=== PATIENT | male | born 1955 | race African-American/Black ===

== ENCOUNTER 2019-03-19 11:55 | Inpatient (IN) | payer OTHER ==
[~2019-03-19] VITALS: Ht 185.4 cm; Wt 106.8 kg
[2019-03-19] VITALS (21 sets, daily range): BP systolic 55–178; BP diastolic 30–135
[2019-03-19] MEDS ORDERED: diphenhdrAMINE HCL 50 MG/1 ML VL ONE (12:20)
[2019-03-19] MEDS ORDERED: HALOPERIDOL LACTATE 5 MG/ML INJ VIAL ONE (12:22)
[2019-03-19] MEDS ORDERED: MIDAZOLAM HCL 1MG/1ML-2 ML VIAL ONE (12:26)
[2019-03-19] MEDS ORDERED: MIDAZOLAM HCL 5 MG/ML-1ML VIAL ONE (12:27)
[2019-03-19] MEDS ORDERED: HALOPERIDOL LACTATE 5 MG/ML INJ VIAL IV PRN (12:30)
[2019-03-19] MEDS ORDERED: diphenhdrAMINE HCL 50 MG/1 ML VL IV ONE (12:30)
[2019-03-19] MEDS ORDERED: LORazepam 2MG/ML-1ML VIAL IV ONE ×2 (12:30)
[2019-03-19] MEDS ORDERED: ETOMIDATE (2MG/ML) 20ML VIAL IV ONE ×2 (12:30→12:45)
[2019-03-19] MEDS ORDERED: SUCCINYLCHOLINE CHLORIDE 20 MG/ML 10ML VIAL IV ONE ×3 (12:31→12:45)
[2019-03-19] MEDS ORDERED: MIDAZOLAM DRIP 50 mg/50mL 50 ML IV ONE (12:31)
[2019-03-19] MEDS: MIDAZOLAM DRIP 50 mg/50mL 50 ML IV SCH ×2 (12:39→23:12)
[2019-03-19 13:13] LABS: Eosinophils # (auto) 0.1 uL; Eosinophils % (auto) 0.7 % (0.0-7.0); Hemoglobin 12.4 g/dL (13.5-17.5)
[2019-03-19 13:14] LABS: Basophils # (auto) 0 uL; Basophils % (auto) 0.2 % (0.0-2.0); Hematocrit 41.8 % (41.0-53.0); Lymphocytes # (auto) 8.4 uL; Lymphocytes % (auto) 45.2 % (10.0-50.0); Mean Corpuscular Hemoglobin 27.8 pg (28.0-32.0); Mean Corpuscular Hgb Conc. 29.7 g/dL (32.0-36.0); Mean Corpuscular Volume 93.6 fL (80.0-100.0); Monocytes # (auto) 2.3 uL; Monocytes % (auto) 12.6 % (0.0-12.0); Neutrophils # (auto) 7.7 uL; Neutrophils % (auto) 41.3 % (37.0-80.0); Nucleated Red Blood Cells % 0.2 %; Platelet Count (auto) 270 10^3/uL (140-450); Red Blood Cells 4.46 10^6/uL (4.5-5.90); Red Cell Distribution Width 12.4 % (11.8-14.3); White Blood Cell 18.7 10^3/uL (4.4-10.8)
[2019-03-19 13:20] LABS: Urine Bacteria FEW /hpf (None Seen); Urine Blood Negative /uL (Negative); Urine Specific Gravity 1.025 (1.001-1.035); Urine WBC 1 /hpf (0 - 3)
[2019-03-19] MEDS ORDERED: MIDAZOLAM HCL 5 MG/ML-1ML VIAL IV ONE (13:30)
[2019-03-19 13:33] LABS: Alanine Aminotransferase 42 U/L (16-61); Albumin 3.9 g/dL (3.4-5.0); Alcohol, Urine < 3.0 mg/dL (0-5); Amphetamine Screen, Urine NEGATIVE (NEGATIVE); Anion Gap 26 (5-15); Aspartate Aminotransferase 31 U/L (15-37); BUN/Creatinine Ratio 8.8; Barbiturate Scree,Urine NEGATIVE (NEGATIVE); Benzodiazephine Screen, Urine NEGATIVE (NEGATIVE); Blood Urea Nitrogen 23 mg/dL (7-18); Calcium 9.2 mg/dL (8.5-10.1); Cannabinoid Screen, Urine NEGATIVE (NEGATIVE); Carbon Dioxide 16 mmol/L (21-32); Chloride 94 mmol/L (98-107); Cocaine Screen, Urine NEGATIVE (NEGATIVE); GFR African American 32 mL/min; GFR Non-African American 27 mL/min; Opiate Scree,Urine NEGATIVE (NEGATIVE); Phencyclidine Screen, Urine NEGATIVE (NEGATIVE); Potassium 3.9 mmol/L (3.5-5.1); Sodium 136 mmol/L (136-145)
[2019-03-19] MEDS ORDERED: NOREPINEPHRINE 8 MG/250ML KIT 250 ML IV ONE (13:35)
[2019-03-19 13:42] LABS: Alkaline Phosphatase 140 U/L (45-117); Bilirubin, Total 0.5 mg/dL (0.2-1.0); Total Protein 8.3 g/dL (6.4-8.2)
[2019-03-19] MEDS: NOREPINEPHRINE 8 MG/250ML KIT 250 ML IV SCH ×2 (13:45→23:51)
[2019-03-19 13:49] LABS: Glucose 882 mg/dL (74-106)
[2019-03-19] MEDS ORDERED: InsuLIN REG 1unit/0.01ml Soln (100units/ml) IV ONE ×2 (14:00→17:45)
[2019-03-19] MEDS ORDERED: SODIUM BICARBONATE 8.4 % INJ 50ML VIAL IV ONE (14:00)
[2019-03-19] MEDS ORDERED: InsuLIN R (HUMAN) 100 UNITS in SODIUM CHL 0.9% 99 ML IV SCH ×4 (15:16→21:59)
[2019-03-19] MEDS ORDERED: DEXTROSE (50%) 50ML SYRG IV PRN ×2 (15:30→16:00)
[2019-03-19] MEDS ORDERED: PROPOFOL 100 ML IV SCH (15:47)
[2019-03-19] MEDS ORDERED: NITROGLYCERIN 0.4 MG SL TAB SL PRN (16:00)
[2019-03-19] MEDS ORDERED: MORPHINE SULF INJ 2 MG/ML SYRINGE 1ML IV PRN (16:00)
[2019-03-19] MEDS ORDERED: ACCU-CHEK COMFORT CURVE STRIP VI SCH (16:30)
[2019-03-19 16:51] LABS: Basophils # (auto) 0 uL; Basophils % (auto) 0.2 % (0.0-2.0); Eosinophils # (auto) 0 uL; Hematocrit 42.5 % (41.0-53.0); Hemoglobin 13.6 g/dL (13.5-17.5); Lymphocytes # (auto) 1.1 uL; Lymphocytes % (auto) 12.5 % (10.0-50.0); Mean Corpuscular Hemoglobin 27.9 pg (28.0-32.0); Mean Corpuscular Volume 87.2 fL (80.0-100.0); Monocytes # (auto) 0.4 uL; Monocytes % (auto) 4.4 % (0.0-12.0); Neutrophils # (auto) 7.5 uL; Neutrophils % (auto) 82.9 % (37.0-80.0); Nucleated Red Blood Cells % 0.1 %; Platelet Count (auto) 267 10^3/uL (140-450); Red Blood Cells 4.88 10^6/uL (4.5-5.90); Red Cell Distribution Width 12.1 % (11.8-14.3)
[2019-03-19 17:13] LABS: Calcium 8.5 mg/dL (8.5-10.1)
[2019-03-19 17:18] LABS: Cholesterol 90 mg/dL (< 200); HDL Cholesterol 26 mg/dL (40-59); LDL Cholesterol 46 mg/dL (< 100); Triglycerides 197 mg/dL (< 150)
[2019-03-19 17:22] LABS: BUN/Creatinine Ratio 10.1; Phosphorus 2.9 mg/dL (2.5-4.90)
[2019-03-19] MEDS: ACCU-CHEK COMFORT CURVE STRIP VI SCH ×5 (17:24→22:22)
[2019-03-19] MEDS: SODIUM CHLORIDE 0.9% 1,000 ML IV SCH ×2 (17:24→17:56)
[2019-03-19] MEDS: ALBUTEROL SULF 2.5 MG/0.5ML(0.5%) NEB SOLN NEB SCH ×2 (18:14→22:08)
[2019-03-19] MEDS: IPRATROPIUM BROM 0.5 MG/2.5ML INH SOL NEB SCH ×2 (18:14→22:08)
[2019-03-19] MEDS: ATRACURIUM BESYLATE 1,000 MG in D5W 5% 150 ML IV SCH (18:35)
[2019-03-19] MEDS ORDERED: SODIUM CHLORIDE 0.9% 1,000 ML IV SCH (19:47)
--- NOTE | 2019-03-19 19:52 | NUR ---
ARRIVED TO UNIT FROM ER
--- NOTE | 2019-03-19 19:52 | NUR ---
ATRACURIUM TURNED OFF - PATIENT STILL AT NORMAL BODY TEMPERATURE
--- NOTE | 2019-03-19 20:00 | NUR ---
ADMISSION NOTE: INTUBATED, SEDATED, AND PARALYZED. UNRESPONSIVE. UNKNOWN BASELINE TRAIN OF FOUR. PUPILS 2 AND SLUGGISH. SINUS TACH, HR 130s. SBP 80-90s ON A LEVOPHED GTT. 8.0 ETT, 24 AT THE LIP. LS CLEAR AND DIMINISHED THROUGHOUT. EVEN AND UNLABORED BREATHING SpO2 INITIALLY IN THE HIGH 80s, BUT > 92% AFTER INCREASING FiO2. MINIMAL ETT AND ORAL SECRETION. ABD ROUND BUT SOFT. HYPOACTIVE BS. UNKNOWN LBM. OGT + AIR BOLUS, LIS, BROWN-SOMMERS OUTPUT. LOCKETT PATENT AND INTACT, DRAINING PALE YELLOW URINE. SKIN GROSSLY INTACT. RIGHT FOREARM 18 G PIV, CDI, PATENT WITH BLOOD RETURN. LEFT WRIST 18 G PIV, CDI, PATENT WITH BLOOD RETURN. LEFT FEMORAL THERAPEUTIC HYPOTHERMIA CVC, INTACT, BUT BLOODY, PATENT WITH BLOOD RETURN. LEFT HAND 20 G PIV, OCCLUDED. DRIPS: ATRACURIUM VERSED PROPOFOL INSULIN LEVOPHED REINFORCED POC. MAINTAINED PATIENT SAFETY: BED LOCKED AND IN THE LOWEST POSITION, FREQUENT VISUAL CHECKS. WILL CONT CARE. FUMI, , UPDATED ON PATIENT'S STATUS AND POC. VERBALIZED UNDERSTANDING WILL CONT CARE
--- NOTE | 2019-03-19 20:00 | NUR ---
BG READING "HIGH" - WILL SEND FOR SERUM GLUCOSE
--- NOTE | 2019-03-19 20:00 | NUR ---
TEMP 99.0F RECTALLY -PLACED ICE PACKS IN BILATERAL AXILLA, LEFT GROIN AND BEHIND NECK: REPROGRAMMED ZOLL THERAPEUTIC HYPOTHERMIA MACHINE WITH TARGET TEMP OF 33C
[2019-03-19] MEDS: PIPERACILLIN-TAZOB 2.25GM 50 ML IV SCH (20:15)
[2019-03-19 20:23] LABS: Basophils # (auto) 0 uL; Basophils % (auto) 0.1 % (0.0-2.0); Eosinophils # (auto) 0 uL; Eosinophils % (auto) 0.1 % (0.0-7.0); Hematocrit 42.7 % (41.0-53.0); Lymphocytes # (auto) 0.9 uL; Lymphocytes % (auto) 20.8 % (10.0-50.0); Mean Corpuscular Hemoglobin 28.4 pg (28.0-32.0); Mean Corpuscular Hgb Conc. 32.8 g/dL (32.0-36.0); Mean Corpuscular Volume 86.6 fL (80.0-100.0); Monocytes # (auto) 0.2 uL; Monocytes % (auto) 4.9 % (0.0-12.0); Neutrophils # (auto) 3.3 uL; Neutrophils % (auto) 74.1 % (37.0-80.0); Nucleated Red Blood Cells % 0.1 %; Platelet Count (auto) 220 10^3/uL (140-450); Red Blood Cells 4.93 10^6/uL (4.5-5.90); Red Cell Distribution Width 11.7 % (11.8-14.3); White Blood Cell 4.4 10^3/uL (4.4-10.8)
--- NOTE | 2019-03-19 20:30 | NUR ---
RAFAEL DIETITIAN ASSISTANT AT BEDSIDE: PER RAFAEL, IF POTASSIUM < 3.1 GIVE 40 MEQ KCL NOTIFIED OF BLOOD GLUCOSE TO HIGH. ORDERS TO INCREASE TO ALGORITHM 2. RAFAEL, DIETITIAN ASSISTANT MADE AWARE OF PATIENT'S STATUS
[2019-03-19 20:40] LABS: Albumin 3.4 g/dL (3.4-5.0); Potassium 3.2 mmol/L (3.5-5.1)
--- NOTE | 2019-03-19 20:47 | NUR ---
PER LAB, ~ 5 MINUTES LEFT UNTIL CHEM PANEL READY
[2019-03-19 20:50] LABS: BUN/Creatinine Ratio 9.1; Bilirubin, Total 0.4 mg/dL (0.2-1.0); Total Protein 7.2 g/dL (6.4-8.2)
--- NOTE | 2019-03-19 21:00 | NUR ---
BG 720
--- NOTE | 2019-03-19 21:15 | NUR ---
MERE HALL, APPLE PICKER
--- NOTE | 2019-03-19 21:32 | NUR ---
BG 588
--- NOTE | 2019-03-19 21:36 | NUR ---
TRAIN OF 4 - ATRACURIUM RESTARTED, ASYNCHRONOUS WITH THE VENT 4 OUT OF 4 TWITCHES TO RIGHT RELIGION AT 6 mA
--- NOTE | 2019-03-19 22:00 | NUR ---
AT TARGET TEMPERATURE 33C - REMOVED ICE PACKS
--- NOTE | 2019-03-19 22:00 | NUR ---
BG 523 - WILL UP TO INSULIN GTT ALGORITHM #3 Addendum: 03/19/19 at 8576 by Eileen Figueredo RN RN MISTAKEN ENTRY - DUPLICATE
--- NOTE | 2019-03-19 22:06 | NUR ---
BG 523 - INCREASED TO ALGORITHM #3
[2019-03-19] MEDS ORDERED: PHENYLEPHRINE INJ 20 MG in SODIUM CHL 0.9% 250 ML IV SCH (22:07)
--- NOTE | 2019-03-19 22:26 | NUR ---
SPOKE WITH RAFAEL ORTHOPAEDIC PHYSICIAN ASSISTANT: NOTIFIED OF NEED TO START ANNABEL GTT DUE TO SBP 50. ORDERS TO WEAN ANNABEL AND START VASOPRESSIN GTT. RAFAEL INQUIRED ABOUT DRIPS. NOTIFIED OF CURRENT DRIPS. ORDERS TO WEAN PROPOFOL AND START FENTANYL GTT IF NEEDED. ORDERS READBACK AND VERIFIED WILL CONT CARE
--- NOTE | 2019-03-19 22:30 | NUR ---
TOF: 2 OF 4 TWITCHES ON 6mA.
[2019-03-19] MEDS: FAMOTIDINE (10MG/ML) 2ML VL IV SCH (22:58)
[2019-03-19] MEDS: fentaNYL Drip 2500mCg/250mlNS 250 ML IV SCH (23:46)
[2019-03-20] VITALS (104 sets, daily range): BP systolic 77–160; BP diastolic 53–98
[2019-03-20] MEDS: ACCU-CHEK COMFORT CURVE STRIP VI SCH ×13 (00:09→23:33)
--- NOTE | 2019-03-20 00:09 | NUR ---
BG 428 - WILL INITIATE ALGORITHM #4
--- NOTE | 2019-03-20 00:13 | NUR ---
TOF: 0/4 TWITCHES ON 6mA VIA RIGHT MANDAEN. DECREASE ATRACURIUM PER PROTOCOL. WILL REASSESS
[2019-03-20] MEDS: SODIUM CHLORIDE 0.9% 1,000 ML IV SCH ×2 (00:14→02:31)
[2019-03-20 00:35] LABS: BUN/Creatinine Ratio 9.5; Calcium 7.6 mg/dL (8.5-10.1)
[2019-03-20 00:41] LABS: Potassium 2.4 mmol/L (3.5-5.1)
[2019-03-20] MEDS: PIPERACILLIN-TAZOB 2.25GM 50 ML IV SCH ×5 (00:41→23:34)
[2019-03-20] MEDS: InsuLIN R (HUMAN) 100 UNITS in SODIUM CHL 0.9% 99 ML IV SCH ×3 (00:43→08:08)
[2019-03-20] MEDS: POTASSIUM CHL 20MEQ/100ML 100 ML IV SCH ×8 (00:45→17:55)
[2019-03-20] MEDS ORDERED: POTASSIUM CHL 20MEQ/100ML 100 ML IV ONE ×3 (00:48→06:14)
[2019-03-20] MEDS ORDERED: VASOPRESSIN 20 UNIT/ML ONE (01:07)
[2019-03-20] MEDS ORDERED: InsuLIN REG 1unit/0.01ml Soln (100units/ml) ONE (01:16)
--- NOTE | 2019-03-20 01:30 | NUR ---
A-LINE PLACED BY ROXANNE HALL AND DR. TABOR IN RIGHT RADIAL
[2019-03-20] MEDS: VASOPRESSIN 50 UNITS in D5W 5% 247.5 ML IV SCH ×2 (01:44→14:10)
--- NOTE | 2019-03-20 01:52 | NUR ---
BG 303 - REMAINS ON ALGORITHM 4
--- NOTE | 2019-03-20 02:06 | NUR ---
TOF: 0/4 TWITCHES ON 6mA. WILL REDUCE ATRACURIUM PER PROTOCOL
[2019-03-20] MEDS: ALBUTEROL SULF 2.5 MG/0.5ML(0.5%) NEB SOLN NEB SCH ×6 (02:13→22:13)
[2019-03-20] MEDS: IPRATROPIUM BROM 0.5 MG/2.5ML INH SOL NEB SCH ×6 (02:13→22:13)
[2019-03-20] MEDS ORDERED: SODIUM BICARBONATE 8.4% INJ 50ML SYRINGE ONE ×2 (02:38→02:46)
--- NOTE | 2019-03-20 02:47 | NUR ---
SPOKE WITH RAFAEL PSYCHOLOGY PHYSICIAN: MADE AWARE OF ABG RESULTS. ORDERS FOR 1 AMP BICARB, AND 1/2NS WITH 1 AMP BICARB AT 100ML/HR
[2019-03-20] MEDS ORDERED: SODIUM BICARBONATE 50ML VIAL 50 ML in SOD CHL 0.45% 1,000 ML IV SCH (03:00)
--- NOTE | 2019-03-20 03:07 | NUR ---
BG 303 - CONTINUE ON ALGORITHM 4
--- NOTE | 2019-03-20 03:14 | NUR ---
TOF: REMAINS WITH 0/4 TWITCHES. ATRACURIUM GTT STOPPED
[2019-03-20] MEDS: MIDAZOLAM DRIP 50 mg/50mL 50 ML IV SCH ×6 (03:56→23:26)
--- NOTE | 2019-03-20 04:01 | NUR ---
RR IN MID 20s, SHIVERING NOTED - RESTARTED ATRACURIUM
--- NOTE | 2019-03-20 04:02 | NUR ---
TOF: 2/4 TWITCHES ON 8 mA
[2019-03-20] MEDS: NOREPINEPHRINE 8 MG/250ML KIT 250 ML IV SCH ×3 (04:33→23:26)
--- NOTE | 2019-03-20 05:45 | NUR ---
TOF: 4/4 TWITCHES ON 8mA. INCREASED ATRACURIUM RATE.
[2019-03-20 05:53] LABS: BUN/Creatinine Ratio 9.2; Calcium 7.3 mg/dL (8.5-10.1); Magnesium 2.1 mg/dL (1.6-2.6); Phosphorus 1.2 mg/dL (2.5-4.90)
--- NOTE | 2019-03-20 05:58 | NUR ---
JEANNA ON VASO GTT - BPs DROPPING - PAGED RAFAEL
--- NOTE | 2019-03-20 05:59 | NUR ---
BG 234 - CONTINUE ON ALGORITHM #4
[2019-03-20] MEDS: PHENYLEPHRINE INJ 20 MG in SODIUM CHL 0.9% 250 ML IV SCH ×3 (06:20→23:00)
--- NOTE | 2019-03-20 06:22 | NUR ---
NOTIFIED ROXANNE HALL OF DROPPING BP AND POTASSIUM LEVEL: ORDERS ANNABEL GTT, 60 MEQ KCL, AND 250 ML % ALBUMIN. ORDERS READBACK AND VERIFIED
[2019-03-20] MEDS ORDERED: ALBUMIN 5% 250 ML IV ONE (06:30)
--- NOTE | 2019-03-20 07:03 | NUR ---
BP NOW SUSTAINED ABOVE 100
--- NOTE | 2019-03-20 07:30 | NUR ---
REPORT AND CARE ENDORSED TO PATT ALEGRIA
--- NOTE | 2019-03-20 07:30 | NUR ---
REPORT RECEIVED FROM DOOR BUILDER NURSE. PATIENT RESTING IN BED AT THIS TIME INTUBATED, SEDATED AND PARALYZED. RESPIRATIONS EVEN AND UNLABORED. NO SIGNS OF SCUTE DISTRESS NOTED. BED IN LOW POSITION. ZOLL HYPOTHERMIA MACHINE CONNECTED TO RIGHT FEMORAL LINE. TEMP WITHIN THERAPEUTIC RANGE 33.1C. WILL CONTINUE TO MONITOR.
[2019-03-20 07:33] LABS: Potassium 2.5 mmol/L (3.5-5.1)
--- NOTE | 2019-03-20 08:00 | NUR ---
TOF: 2/4 TWITCHES on 8 mA. No Changes made at this time patient is therapeutic.
--- NOTE | 2019-03-20 09:00 | NUR ---
UPDATED DODDRIDGE LIGHTHOUSE KEEPER ON PATIENT STATUS.
[2019-03-20] MEDS: FAMOTIDINE (10MG/ML) 2ML VL IV SCH ×2 (09:34→21:29)
[2019-03-20] MEDS ORDERED: SOD CHL 0.45% WITH 20MEQ KCL 1,000 ML IV SCH (09:45)
--- NOTE | 2019-03-20 09:51 | NUR ---
DR CEDEÑO AT BEDSIDE TO ASSESS PATIENT AND DISCUSS PLAN OF CARE. ALL ORDERS NOTED IN CHART.
[2019-03-20] MEDS ORDERED: FAMOTIDINE (10MG/ML) 2ML VL IV SCH ×2 (10:00)
--- NOTE | 2019-03-20 11:18 | NUR ---
DR HAYS AT BEDSIDE TO ASSESS PATIENT AND DISCUSS PLAN OF CARE WITH . ALL ORDERS NOTED IN CHART.
[2019-03-20 11:30] LABS: Basophils # (auto) 0 uL; Basophils % (auto) 0.1 % (0.0-2.0); Eosinophils # (auto) 0 uL; Eosinophils % (auto) 0.1 % (0.0-7.0); Hematocrit 37.2 % (41.0-53.0); Hemoglobin 12.6 g/dL (13.5-17.5); Lymphocytes # (auto) 0.8 uL; Lymphocytes % (auto) 16.3 % (10.0-50.0); Mean Corpuscular Hemoglobin 28.9 pg (28.0-32.0); Mean Corpuscular Hgb Conc. 33.8 g/dL (32.0-36.0); Mean Corpuscular Volume 85.4 fL (80.0-100.0); Monocytes # (auto) 0.4 uL; Monocytes % (auto) 8.7 % (0.0-12.0); Neutrophils # (auto) 3.8 uL; Neutrophils % (auto) 74.8 % (37.0-80.0); Platelet Count (auto) 142 10^3/uL (140-450); Red Blood Cells 4.36 10^6/uL (4.5-5.90); White Blood Cell 5.1 10^3/uL (4.4-10.8)
[2019-03-20 11:48] LABS: INR 1.29 (0.9-1.15)
[2019-03-20 11:50] LABS: BUN/Creatinine Ratio 9.3; Calcium 7.6 mg/dL (8.5-10.1); Potassium 3.1 mmol/L (3.5-5.1)
[2019-03-20] MEDS ORDERED: CALCIUM CHLOR(10%) 100MG/ML 10ML SYRINGE IV ONE (11:51)
[2019-03-20] MEDS ORDERED: ATROPINE SULF 1 MG/10ml SYR IV ONE (11:51)
[2019-03-20] MEDS ORDERED: EPINEPHrine HCL 1 MG/10 ML SYRG IV ONE (11:51)
[2019-03-20] MEDS ORDERED: SODIUM BICARBONATE 8.4% INJ 50ML SYRINGE IV ONE (11:51)
--- NOTE | 2019-03-20 12:00 | NUR ---
TOF: 2/4 TWITCHES on 8 mA. No Changes made at this time patient is therapeutic.
--- NOTE | 2019-03-20 12:28 | NUR ---
DR Bre CHRISTY AT BEDSIDE TO ASSESS PATIENT AND DISCUSS PLAN OF CARE WITH . ALL ORDERS NOTED IN CHART.
[2019-03-20] MEDS ORDERED: PHENYLEPHRINE IV 0 ML IV ONE (12:49)
--- NOTE | 2019-03-20 14:42 | NUR ---
DR DAVIS AT BEDSIDE TO ASSESS PATIENT AND DISCUSS PLAN OF CARE WITH . ALL ORDERS NOTED IN CHART.
--- NOTE | 2019-03-20 14:45 | NUR ---
PAGED DR CEDEÑO FOR LAB RESULTS AND ORDERS. AWAITING CALL BACK.
--- NOTE | 2019-03-20 15:00 | NUR ---
SPOKE TO DR CEDEÑO TO CLARIFY ORDERS. PER MD CHANGE FLUIDS TO D5W .45NS WITH 20MEQ OF POTASSIUM TO RUN AT 75ML/HR, ADMINISTER 40MEQ POTASSIUM IVPB X1 DOSE. INITIATE POTASSIUM AND MAGNESIUM PROTOCOL. PLACE PATIENT ON Q4 AGGRESSIVE SCALE AND ADMINISTER 15UNITS OF LANTUS NOW X1 DOSE. ALL ORDERS NOTED IN CHART.
--- NOTE | 2019-03-20 15:04 | NUR ---
DR LIMA AT BEDSIDE TO ASSESS PATIENT AND DISCUSS PLAN OF CARE WITH . ORDERS NOTED IN CHART.
--- NOTE | 2019-03-20 15:12 | NUR ---
PAGED MEDICAL RECORDS REQUEST FORM TO [facility] TO OBTAIN MEDICAL RECORDS PER MD REQUEST. CONSENT SIGNED BY
[2019-03-20] MEDS ORDERED: D5W/SOD CHL 0.45%/KCL 20MEQ 1,000 ML IV SCH (15:15)
[2019-03-20] MEDS ORDERED: DEXTROSE (50%) 50ML SYRG IV PRN (15:15)
--- NOTE | 2019-03-20 15:30 | NUR ---
ASSEMBLY LINE ROBOT OPERATOR AT BEDSIDE
[2019-03-20] MEDS: ATRACURIUM BESYLATE 1,000 MG in D5W 5% 150 ML IV SCH (15:47)
[2019-03-20] MEDS ORDERED: INSULIN LANTUS (GLARGINE) 1 /0.01ml (100units/ml) SC ONE (16:00)
--- NOTE | 2019-03-20 16:00 | NUR ---
TOF: 4/4 TWITCHES on 8 mA. Increased drip per protocol. Will reassess in 1 hour.
[2019-03-20] MEDS: InsuLIN REG 1unit/0.01ml Soln (100units/ml) SC SCH ×3 (16:03→23:34)
--- NOTE | 2019-03-20 17:00 | NUR ---
TOF: 4/4 TWITCHES on 8 mA. Increased drip per protocol. Will reassess in 1 hour.
[2019-03-20] MEDS ORDERED: POTASSIUM CHL 20MEQ/100ML 100 ML IV PRN (17:30)
[2019-03-20] MEDS ORDERED: MAGNESIUM SULFATE 1GM/100ML 100 ML IV PRN (17:30)
--- NOTE | 2019-03-20 18:05 | NUR ---
TOF: 2/4 TWITCHES on 8 mA. No Changes made at this time patient is therapeutic.
--- NOTE | 2019-03-20 19:15 | NUR ---
POTASSIUM REPLACEMENT STOPPED FOR REWARMING PER HOSPITAL PROTOCOL.
[2019-03-20] MEDS ORDERED: ATRACURIUM BESYLATE 1,000 MG in D5W 5% 150 ML IV SCH (19:30)
[2019-03-20] MEDS ORDERED: D5W/SOD CHL 0.45% 1,000 ML IV SCH (19:30)
--- NOTE | 2019-03-20 19:30 | NUR ---
REWARMING STARTED. TEMP 33.1 C.
--- NOTE | 2019-03-20 19:35 | NUR ---
HOSPITALIST INFORMED DAYAMI OLIVEIRA PT'S D DIMER LEVEL. MD ORDERED TO CHECK BMP IN AM. Addendum: 03/21/19 at 0527 by Haroldo Garrett RN PER HOSPITALIST NO NEED FOR BMP Q6H DURING REWARMING.
[2019-03-20] MEDS: fentaNYL Drip 2500mCg/250mlNS 250 ML IV SCH (23:46)
[2019-03-21] VITALS (106 sets, daily range): BP systolic 73–131; BP diastolic 54–84
--- NOTE | 2019-03-21 01:35 | NUR ---
ATRACURIUM DRIP STOPPED PER PROTOCOL. TEMP 36.1 AT 0130
[2019-03-21] MEDS: ALBUTEROL SULF 2.5 MG/0.5ML(0.5%) NEB SOLN NEB SCH ×6 (02:06→22:46)
[2019-03-21] MEDS: IPRATROPIUM BROM 0.5 MG/2.5ML INH SOL NEB SCH ×6 (02:06→22:46)
--- NOTE | 2019-03-21 02:40 | NUR ---
VERSED DRIP DECREASED TO 10 MG/HR PER PROTOCOL.
[2019-03-21] MEDS: MIDAZOLAM DRIP 50 mg/50mL 50 ML IV SCH ×2 (03:00→08:08)
[2019-03-21] MEDS: fentaNYL Drip 2500mCg/250mlNS 250 ML IV SCH (04:07)
--- NOTE | 2019-03-21 04:07 | NUR ---
FENTANYL DRIP STARTED PATIENT IS ON VERSED 15 MG/HR. PATIENT IS HAVING IRREGULAR ABDOMINAL BREATHING IN HIGH 20'S. PATIENT HAS NORMAL COUGH AND GAG. PATIENT WITHDRAWS TO PAIN AND MOVES BOTH ARMS WITH STIMULI. FENTANYL DRIP STARTED AT 25MCG/HR.
[2019-03-21] MEDS: ACCU-CHEK COMFORT CURVE STRIP VI SCH ×6 (04:15→23:54)
[2019-03-21 04:30] LABS: Basophils # (auto) 0 uL; Basophils % (auto) 0.2 % (0.0-2.0); Eosinophils # (auto) 0 uL; Eosinophils % (auto) 0.2 % (0.0-7.0); Hematocrit 37.5 % (41.0-53.0); Hemoglobin 12.6 g/dL (13.5-17.5); Lymphocytes # (auto) 0.5 uL; Lymphocytes % (auto) 6.5 % (10.0-50.0); Mean Corpuscular Hemoglobin 28.6 pg (28.0-32.0); Mean Corpuscular Hgb Conc. 33.6 g/dL (32.0-36.0); Mean Corpuscular Volume 84.9 fL (80.0-100.0); Monocytes # (auto) 0.7 uL; Monocytes % (auto) 8.6 % (0.0-12.0); Neutrophils # (auto) 6.4 uL; Neutrophils % (auto) 84.5 % (37.0-80.0); Platelet Count (auto) 121 10^3/uL (140-450); Red Blood Cells 4.41 10^6/uL (4.5-5.90); Red Cell Distribution Width 12.1 % (11.8-14.3); White Blood Cell 7.6 10^3/uL (4.4-10.8)
[2019-03-21] MEDS: InsuLIN REG 1unit/0.01ml Soln (100units/ml) SC SCH ×5 (04:36→20:04)
[2019-03-21] MEDS ORDERED: InsuLIN REG 1unit/0.01ml Soln (100units/ml) SC ONE (04:45)
[2019-03-21 04:48] LABS: BUN/Creatinine Ratio 8.7; Potassium 5.3 mmol/L (3.5-5.1)
[2019-03-21] MEDS: SODIUM CHLORIDE 0.9% 1,000 ML IV SCH ×3 (04:53→23:44)
[2019-03-21] MEDS: PIPERACILLIN-TAZOB 2.25GM 50 ML IV SCH ×3 (05:47→17:41)
[2019-03-21] MEDS: NOREPINEPHRINE 8 MG/250ML KIT 250 ML IV SCH ×4 (05:49→21:19)
--- NOTE | 2019-03-21 06:05 | NUR ---
PAGED HOSPITALIST TO NOTIFY PT'S HYPERKALEMIA.
--- NOTE | 2019-03-21 06:11 | NUR ---
Respiratory note: RECEIVED PATIENT ON V11 ESPRIT VENT ORALLY INTUBATED WITH AN 8.0 ETT SECURED VIA MAURICIO AT THE 24CM MARKING AT THE LIP, AND MECHANICALLY VENTILATED WITH THE CHARTED SETTINGS. SPO2 98%, LUNG SOUNDS CLEAR T/O, NO SECRETIONS WHEN SUCTIONED. SKIN IS WARM/DRY TO THE TOUCH AND IS INTACT NEAR MAURICIO SITE. THERE IS AN OGT IN PLACE AND SECURED TO THE ETT, A RIGHT RADIAL ARTERIAL LINE IS IN PLACE AND PATENT, AND A TRIPLE LUMEN CENTRAL LINE IS PLACED IN THE RIGHT GROIN ALONG WITH A CATHETER ATTACHED WITH WARMING FLUIDS TO RE-WARM PATIENTS CORE TEMP. NO NEW AM CXR TO ASSESS AT THIS TIME. PATIENT IS UNRESPONSIVE TO BOTH VERBAL/TACTILE STIMULI AND IS SEDATED ON VERSED AND FENTANYL DRIPS. HE IS RESTING COMFORTABLY AND TOLERATING VENT WELL, NO CHANGES MADE. VENT PLUGGED INTO RED OUTLET AND ALL ALARMS ARE SET AND AUDIBLE. WILL CONTINUE TO ASSESS PATIENT WELL VENTILATOR FUNCTION. [employer] RUN INLINE.
--- NOTE | 2019-03-21 06:45 | NUR ---
PAGED HOSPITALIST AGAIN.
--- NOTE | 2019-03-21 06:45 | NUR ---
HOSPITALIST CALLED BACK. INFORMED HIM ABOUT HYPERKALEMIA. ORDERS RECEIVED AND WILL CARRY OUT ORDERS. Addendum: 03/21/19 at 0738 by Haroldo Garrett RN ERROR ON CHARTING. HOSPITALIST CALLED BACK AT 0650.
[2019-03-21] MEDS ORDERED: ALBUTEROL SULF 2.5 MG/0.5ML(0.5%) NEB SOLN NEB ONE (07:00)
[2019-03-21] MEDS ORDERED: SODIUM BICARBONATE 8.4 % INJ 50ML VIAL IV ONE (07:00)
[2019-03-21] MEDS ORDERED: CALCIUM GLUC 4.65meq/50ml D5AE 50 ML IV ONE (07:00)
[2019-03-21] MEDS: PHENYLEPHRINE INJ 20 MG in SODIUM CHL 0.9% 250 ML IV SCH ×2 (07:20→15:40)
--- NOTE | 2019-03-21 07:29 | NUR ---
Respiratory note: PATIENT PLACED ON CONTINUOS 20MG ALBUTEROL MED-NEB TX PER PROVIDER'S ORDER.
--- NOTE | 2019-03-21 08:30 | NUR ---
HOSPITALIST AT BEDSIDE DR CHRISTY UPDATED ON PATIENT'S STATUS, DRIPS, VITAL SIGNS, MORNING LABS, BLOOD SUGAR AND PENDING IMAGING REPORTS. ORDERS RECEIVED AND ENTERED BY DR CHRISTY. PER DR CHRISTY "HOLD PENDING CT OR OTHER IMAGES REQUIRING TRANSFER UNTIL TOMORROW". DR CHRISTY ALSO WANTS TO BE NOTIFIED OF BILATERAL LOWER LEGS ULTRA SOUND RESULTS ONCE COMPLETED. DR CHRISTY REQUESTING SPOUSE TO MEET WITH HIM TOMORROW MORNING AT 0800.
--- NOTE | 2019-03-21 09:17 | NUR ---
US TECH AT BEDSIDE
[2019-03-21] MEDS: FAMOTIDINE (10MG/ML) 2ML VL IV SCH (09:44)
--- NOTE | 2019-03-21 09:53 | NUR ---
Assessment Pt is a 63 yr old intubated male. Pt's , Keyanna, is his contact and service clerks supervisor on file at [phone]. 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 Pt's stated that her is in good health and will be probably transferring to [place] soon. Pt's uninterested in answering questions about pt's awareness of diagnosis or services used in the home, stating "that all information on the pt can be found in his charts and that I need to look at them." SW stated that she is assessing for possible further needs upon d/c but pt's was uninterested in answering anymore questions. Pt d/c needs will be further assessed closer to d/c. Addendum: 03/21/19 at 1004 by BEKAH BELL SS Amended: Links added.
[2019-03-21] MEDS ORDERED: ENOXAPARIN SOD 40 MG/0.4 ML SYRINGE SC SCH (10:00)
--- NOTE | 2019-03-21 10:17 | NUR ---
CONTACT HOSPITALIST INA STOCK AT BEDSIDE, INQUIRED ON PATIENT'S STATUS, INA NOTIFIED OF BLE US RESULTS. ORDERS FOR LOVENOX 1MG/KG RECEIVED, INA AWARE THAT 40 MG SQ ALREADY ADMINISTERED PREVIOUSLY ORDERED. CONTACT DR CHRISTY AND NOTIFIED OF BLE US RESULTS AND INA'S ORDERS. DR CHRISTY AGREED WITH PREVIOUSLY RECEIVED ORDERS AND ORDERED AN ADDITIONAL 70 MG LOVENOX SQ TO BE ADMINISTERED NOW - THEN 110 MG LOVENOX SQ Q12H TO START AT 2200 TONIGHT. ORDERS READ BACK AND CONFIRMED.
[2019-03-21] MEDS ORDERED: ENOXAPARIN SOD 80 MG/0.8ML SYRINGE SC ONE (10:30)
[2019-03-21] MEDS ORDERED: ENOXAPARIN SOD 120 MG/0.8 ML SYRINGE SC SCH ×2 (10:30→22:00)
--- NOTE | 2019-03-21 11:09 | NUR ---
ECG TECH AT BEDSIDE Addendum: 03/21/19 at 1109 by Nanci Hoyt RN CORRECTION: CHRONOGRAPH OPERATOR AT BEDSIDE.
--- NOTE | 2019-03-21 11:14 | NUR ---
ELECTROENCEPHALOGRAM COMPLETED AT BEDSIDE. PATT FARNSWORTH NOTIFIED.
--- NOTE | 2019-03-21 11:54 | NUR ---
NUTRITION ASSESSMENT NOTES Please refer to link notes of nutrition screen form filed under the intervention section of the plan of care for further details. Est. Needs: 1950 kcal to 2500 kcal (18-23 kcal/kgBW), 67 gms to 84 gms pro (0.8-1.0 gms/kgIBW: 84 kg). Will continue to monitor pertinent labs and reassess nutrient need prn Thank you. Addendum: 03/21/19 at [address] Amended: Links added.
--- NOTE | 2019-03-21 12:51 | NUR ---
1230 03/21/19 I called [facility] [phone] and spoke with sql programmer analyst Marycarmen to request inpatient authorization for today-I let her know that per Dr. Bre Gutierrez patient not stable for transfer-she will relay the information to assigned rifle case repairer Sandra and will have her give me a call regarding today's authorization. Per Marycarmen they did receive clinical information on this patient today.
--- NOTE | 2019-03-21 16:13 | NUR ---
PULMONOLOGY AT BEDSIDE DR THAKUR UPDATED ON PATIENT'S STATUS, ORDERS RECEIVED.
[2019-03-21] MEDS: PROPOFOL 100 ML IV SCH (16:34)
--- NOTE | 2019-03-21 17:56 | NUR ---
PHONE CALL RECEIVED FROM DR GARCIA OF [facility], DR GARCIA REQUESTED TROPONIN LEVELS AND CURRENT STATUS. PER DR GARCIA, FAMILY IS REQUESTING TRANSFER BUT HE FEELS IT MAY BE TOO SOON. DR GARCIA "OR ONE OF MY COLLEAGUES WILL CONTACT DR HAYS, CARDIOLOGY TOMORROW. DR GARCIA DID NOT WANT TO LEAVE A PHONE NUMBER AT THIS TIME.
--- NOTE | 2019-03-21 19:45 | NUR ---
OPEN NOTES Assumed care of patient. Patient is sedated with IV Propofol and IV Fentanyl - see IV spreadsheet for titration Intubated and ventilated on AC mode, rate 24, TV 470, PEEP 5, FIO2 30%. Suctioned thick creamy secretions from ETT. Oral care done. ECG on Sinus tachycardia, HR 106/min. BP labile SBP 85-100 mmHg on IV Levophed max dose OGT on LIS with greenish output. No BM for today Tinajero catheter with yellowish output with sediments Zoll catheter still connected to thermoregulator. To be kept no normothermic for 72 hours, rewarming done yesterday 03/20 1900hrs Full assessment -refer interventions
--- NOTE | 2019-03-21 20:00 | NUR ---
SEDATION Patient's RR 30-37/min,labored breaths SPO2 91%. IV Fentanyl increased - see IV Spreadsheet
--- NOTE | 2019-03-21 20:45 | NUR ---
FAMILY AT BEDSIDE TALKED TO PATIENT'S ABDI AND DAUGHTER MIHAELA. UPDATED HER OF PATIENT'S CONDITION. ALL QUESTIONS ANSWERED. VERBALIZED UNDERSTANDING. PAMPHLET GIVEN FOR VISITING HOURS POLICY AND HOSPITAL PHONE NUMBER
--- NOTE | 2019-03-21 21:00 | NUR ---
SEDATION VACATION PATIENT BREATHING 30-37/MIN, LABORED BREATHS SEDATION INCREASED Addendum: 03/21/19 at 2245 by Kimberlee Diaz RN Amended: Links added.
[2019-03-22] VITALS (103 sets, daily range): BP systolic 70–179; BP diastolic 15–92
[2019-03-22] MEDS: PIPERACILLIN-TAZOB 2.25GM 50 ML IV SCH ×5 (00:01→23:35)
[2019-03-22] MEDS: InsuLIN REG 1unit/0.01ml Soln (100units/ml) SC SCH ×7 (00:01→23:34)
[2019-03-22] MEDS: PHENYLEPHRINE INJ 20 MG in SODIUM CHL 0.9% 250 ML IV SCH ×7 (01:06→23:50)
[2019-03-22] MEDS: NOREPINEPHRINE 8 MG/250ML KIT 250 ML IV SCH ×4 (01:08→20:00)
--- NOTE | 2019-03-22 01:08 | NUR ---
BP LOW Patient's SBP 70-80 mmHg, MAP 60 mmHg IV Levophed max dose Re-started IV Phenylephrine will continue to monitor
--- NOTE | 2019-03-22 01:50 | NUR ---
BP RE-ASSESS Patient's SBP 90-95 mmHg, MAP 65 mmHg IV servando at 40mcg/min, levo at 30mcg/min
[2019-03-22] MEDS: ALBUTEROL SULF 2.5 MG/0.5ML(0.5%) NEB SOLN NEB SCH ×6 (02:36→21:49)
[2019-03-22] MEDS: IPRATROPIUM BROM 0.5 MG/2.5ML INH SOL NEB SCH ×6 (02:36→21:49)
--- NOTE | 2019-03-22 03:00 | NUR ---
SKIN TEAR Noted a skin tear at patient back lateral side. Picture taken. Covered with Optifoam
--- NOTE | 2019-03-22 03:45 | NUR ---
Patient bathe/linen change Patient cleaned with CHG wipes. Skin integrity assessed for any changes. Linens changed. Patient repositioned for comfort.
[2019-03-22] MEDS: ACCU-CHEK COMFORT CURVE STRIP VI SCH ×6 (04:20→23:33)
[2019-03-22] MEDS: PROPOFOL 100 ML IV SCH ×3 (04:24→23:54)
[2019-03-22 04:50] LABS: Basophils # (auto) 0 uL; Basophils % (auto) 0.3 % (0.0-2.0); Eosinophils # (auto) 0.1 uL; Eosinophils % (auto) 0.5 % (0.0-7.0); Hematocrit 34.6 % (41.0-53.0); Hemoglobin 11.6 g/dL (13.5-17.5); Lymphocytes # (auto) 1.4 uL; Lymphocytes % (auto) 9.7 % (10.0-50.0); Mean Corpuscular Hemoglobin 28.3 pg (28.0-32.0); Mean Corpuscular Hgb Conc. 33.5 g/dL (32.0-36.0); Mean Corpuscular Volume 84.5 fL (80.0-100.0); Monocytes # (auto) 0.8 uL; Monocytes % (auto) 5.9 % (0.0-12.0); Neutrophils # (auto) 11.6 uL; Neutrophils % (auto) 83.6 % (37.0-80.0); Nucleated Red Blood Cells % 0.1 %; Platelet Count (auto) 134 10^3/uL (140-450); Red Blood Cells 4.09 10^6/uL (4.5-5.90); Red Cell Distribution Width 12.4 % (11.8-14.3); White Blood Cell 13.9 10^3/uL (4.4-10.8)
[2019-03-22 05:42] LABS: Albumin 2.7 g/dL (3.4-5.0); Calcium 7.3 mg/dL (8.5-10.1); Potassium 3.8 mmol/L (3.5-5.1)
[2019-03-22 05:45] LABS: BUN/Creatinine Ratio 7.6; Bilirubin, Total 0.5 mg/dL (0.2-1.0); Total Protein 6.9 g/dL (6.4-8.2)
--- NOTE | 2019-03-22 07:40 | NUR ---
DR CHRISTY AT BEDSIDE UPDATED ON PATIENT'S STATUS AND PENDING CT'S, VITAL SIGNS AND DRIPS. DR CHRISTY ORDERED CT'S TO BE HELD UNTIL PATIENT STABLE. DR CHRISTY ALSO AWARE OF LABS AND KIDNEY FUNCTION. ORDERS RECEIVED AND ENTERED BY DR CHRISTY.
[2019-03-22] MEDS ORDERED: VANCOMYCIN PER PHARMACY 0 MG IV SCH (08:15)
--- NOTE | 2019-03-22 08:45 | NUR ---
DR DAVIS/FAMILY AT BEDSIDE DR DAVIS UPDATED ON PATIENT'S STATUS. DR DAVIS DISCUSSED PLAN OF CARE WITH PATIENT'S SPOUSE. ABDI VERBALIZED UNDERSTANDING. DR DAVIS AWARE OF PENDING HEAD CT AND STATED OK TO POSTPONE AT THIS TIME.
--- NOTE | 2019-03-22 08:45 | NUR ---
PHONE CALL RECEIVED FROM DR CHRISTY TO ORDER HEPARIN INSTEAD OF LOVENOX AFTER SPEAKING WITH DR PACHECO AND KIDNEY FUNCTION. ORDER WILL BE CARRIED OUT.
[2019-03-22] MEDS ORDERED: VANCOMYCIN 1GM/250ML 250 ML IV ONE (09:00)
--- NOTE | 2019-03-22 09:10 | NUR ---
CONTACT PHARMACY DISCUSSED HEPARIN DRIP WITH HARRY, PHARMACISTS ORDERED BY DR CHRISTY TO CONFIRMED BOLUS AND RATE. HARRY VERBALIZED UNDERSTANDING AND CONFIRMED RATE - ORDERS PROCESSED.
--- NOTE | 2019-03-22 09:19 | NUR ---
0915 03/22/19 I called [facility] [phone] and spoke with implementation analyst Demetrice to request continued inpatient authorization. She said the insurance case manager are being assigned right now, and she will have the assigned case hardener or her implementation analyst give me a call. I let Demetrice know that this patient is not stable for transfer today-she verified that they did receive clinical information today on this patient.
[2019-03-22] MEDS: FAMOTIDINE (10MG/ML) 2ML VL IV SCH (09:35)
[2019-03-22] MEDS ORDERED: HEPARIN SODIUM (PORCINE) 5000 UNITS/ML 1ML VIAL IV ONE ×2 (09:45→18:00)
[2019-03-22] MEDS ORDERED: HEPARIN DRIP/D5W 100UNITS/ML 250 ML IV SCH (09:46)
[2019-03-22] MEDS ORDERED: ENOXAPARIN SOD 120 MG/0.8 ML SYRINGE SC SCH (10:00)
--- NOTE | 2019-03-22 10:00 | NUR ---
HEPARIN STARTED ORDERED BY PHYSICIAN AND PER PROTOCOL.
--- NOTE | 2019-03-22 10:10 | NUR ---
CONTACT PULMONOLOGY DR THAKUR UPDATED ON PATIENT'S STATUS, MORNING ABG AND CURRENT VENT SETTINGS/VITAL SIGNS. DR THAKUR VERBALIZED UNDERSTANDING. NO ORDERS AT THIS TIME.
[2019-03-22 10:12] LABS: INR 1.27 (0.9-1.15); Partial Thromboplastin Time 52.3 sec (23.64-32.05)
--- NOTE | 2019-03-22 10:23 | NUR ---
FAMILY AT BEDSIDE
--- NOTE | 2019-03-22 12:00 | NUR ---
WOUND CARE NOTE: PATIENT ADMITTED TO [facility] WITH DIAGNOSIS OF S/P CPR. CURRENT OLAYINKA SCORE IS 12. PATIENT REMAINS INTUBATED, SEDATED. PATIENT HAS TWO SKIN TEARS NOTED BY BEDSIDE NURSE. WOUND PHOTOS WERE TAKEN FOR REFERENCE AT THE TIME OF ADMIT. PATIENT NOTED TO HAVE A SMALL PARTIAL THICKNESS SKIN TEAR TO THE LEFT BACK, AND THE RIGHT THIGH. NO OTHER SKIN INTEGRITY ISSUES NOTED. PATIENT WOULD BENEFIT FROM FREQUENT TURN SCHEDULE Q 2 HOURS, PRN CONDITION PERMITS, WITH PRESSURE REDISTRIBUTION USING PILLOWS/WEDGES, BID/PRN APPLICATION WITH MOISTURE BARRIER CREAM, OPTIFOAM GENTLE SACRAL DRESSING, EOD/PRN APPLICATION WITH THERAHONEY, OPTIFOAM GENTLE DRESSING TO WOUNDS ON LEFT BACK, RIGHT THIGH, DIETARY CONSULT, SKIN/WOUND CARE PLAN, CONTINUED MONITORING BY WOUND CARE TEAM. Addendum: 03/22/19 at 1535 by Zabrina Gomez RN Amended: Links added.
--- NOTE | 2019-03-22 13:47 | NUR ---
DR THAKUR AT BEDSIDE/PAGED DR TARA THAKUR UPDATED ON PATIENT'S STATUS, DRIPS, VITAL SIGNS AND WORK OF BREATHING. NO ORDER AT THIS TIME. DR THAKUR ORDERED NURSE TO CONTACT DR PACHECO FOR POSSIBLE DIALYSIS CATHETER PLACEMENT WHICH HE CAN PLACE TODAY. PAGED DR PACHECO, MESSAGE LEFT WITH AMY, AWAITING RESPONSE.
--- NOTE | 2019-03-22 15:20 | NUR ---
DR PACHECO AT BEDSIDE UPDATED ON PATIENT'S STATUS, LABS, DRIPS AND LOW URINE OUTPUT. ORDERS RECEIVED AND WILL BE CARRIED OUT. DR PACHECO AWARE OF DR THAKUR RECOMMENDATION. NO ORDERS RECEIVED, DR PACHECO DISCUSSED POC WITH DR THAKUR.
[2019-03-22] MEDS ORDERED: SODIUM CHLORIDE 0.9% 1,000 ML IV ONE ×2 (16:30→17:00)
[2019-03-22] MEDS ORDERED: SODIUM CHLORIDE 0.9% 3,300 ML IV ONE (16:30)
[2019-03-22 17:12] LABS: INR 1.22 (0.9-1.15); Partial Thromboplastin Time 28.5 sec (23.64-32.05)
[2019-03-22] MEDS: BUMETANIDE 2.5mg/10ml (0.25 mg/ml) INJ IV ONE ×2 (17:15→17:28)
[2019-03-22] MEDS: ALBUMIN 25% 100 ML IV SCH ×2 (17:16→18:05)
[2019-03-22] MEDS ORDERED: BUMETANIDE INJECTION 10 ML ONE (17:22)
--- NOTE | 2019-03-22 18:00 | NUR ---
DR HAYS AT BEDSIDE UPDATED ON PATIENT'S STATUS AND [facility] CALL RECEIVED YESTERDAY 03/21/19 REQUESTING TO SPEAK WITH HIM BUT WOULD NOT LEAVE CONTACT NUMBER TO GIVE TO DR HAYS. DR HAYS VERBALIZED UNDERSTANDING AND STATED "YOU CAN GIVE THEM MY CELL NUMBER IF THEY CALL AGAIN".
[2019-03-22] MEDS: HEPARIN DRIP/D5W 100UNITS/ML 250 ML IV SCH ×2 (18:15→20:13)
--- NOTE | 2019-03-22 19:32 | NUR ---
END OF SHIFT NOTE PATIENT CARE ENDORSED TO HYDROGRAPHIC SURVEYOR RN, NO DISTRESS NOTED, PATIENT RESPIRATIONS TACHYPNEIC THEREFORE NEED TO INCREASE SEDATION. CURRENTLY RESPIRATIONS 24 AT THE CURRENT SEDATION SETTINGS, HOWEVER PATIENT CONTINUES TO USE ACCESSORY MUSCLES. ENDORSED ADMINISTRATION OF BUMEX ONCE THERE IS AN OPEN LINE INSTRUCTIONS STATE "GIVE UNDILUTED". FALL AND SAFETY PRECAUTIONS IN PLACE.
[2019-03-22] MEDS: BUMETANIDE INJECTION 25 MG in GIVE UN-DILUTED 0 ML IV SCH (19:38)
[2019-03-22] MEDS: fentaNYL Drip 2500mCg/250mlNS 250 ML IV SCH (20:11)
--- NOTE | 2019-03-22 20:30 | NUR ---
AT BEDSIDE UPDATED OF PATIENT'S CONDITION AND POC. ALL QUESTIONS ANSWERED. VERBALIZED UNDERSTANDING
--- NOTE | 2019-03-22 21:00 | NUR ---
SEDATION VACATION NOT DONE-PATIENT IS HAVING LABORED BREATHS Addendum: 03/22/19 at 2241 by Kimberlee Diaz RN Amended: Links added.
--- NOTE | 2019-03-22 21:00 | NUR ---
RESPIRATORY PATIENT'S RR 24-26/MIN NOW BUT STILL HAVING SOME ABDOMINAL BREATHING SUCTIONING DONE - REMAINED SAME TITRATED IV SEDATION - FENTANYL INCREASED TO 200MCG/HR, PROPOFOL STILL AT 20MCG/KG/MIN WILL CONTINUE TO MONITOR
--- NOTE | 2019-03-22 23:30 | NUR ---
SPECIMEN SENT FOR PT/PTT
[2019-03-22] MEDS: VASOPRESSIN 50 UNITS in D5W 5% 247.5 ML IV SCH ×3 (23:33)
[2019-03-23] VITALS (108 sets, daily range): BP systolic 75–165; BP diastolic 49–85
--- NOTE | 2019-03-23 01:30 | NUR ---
LAB CALLED FOR ANOTHER BLOOD SPECIMEN FOR PT/PTT TALKED TO LAB STAFF,HE SAID HE NEEDED ANOTHER SPECIMEN TO RE-CHECK THE RESULTS HE SAID ITS SHOWING A RESULT BUT THE MACHINE IS NOT VALIDATING IT. INFORMED HIM THAT THE PATIENT IS ON HEPARIN DRIP AND NEEDS THE RESULTS MATT
[2019-03-23] MEDS: NOREPINEPHRINE 8 MG/250ML KIT 250 ML IV SCH ×3 (01:55→18:07)
[2019-03-23 01:59] LABS: INR 1.19 (0.9-1.15)
--- NOTE | 2019-03-23 02:24 | NUR ---
FOLLOW UP PTT RESULTS SAMPLE STILL RUNNING ACCORDING TO LAB STAFF
[2019-03-23] MEDS: IPRATROPIUM BROM 0.5 MG/2.5ML INH SOL NEB SCH ×6 (02:33→22:27)
[2019-03-23] MEDS: ALBUTEROL SULF 2.5 MG/0.5ML(0.5%) NEB SOLN NEB SCH ×6 (02:33→22:27)
--- NOTE | 2019-03-23 02:42 | NUR ---
PTT - NO RESULT YET LAB STAFF JOHN CALLED. HE SAID HE USED TWO MACHINES TO TEST PTT ONE SAYS - NO COAGULATION AND THE OTHER NO RESULT HE RECOMMENDS TO TURN OFF HEPARIN BECAUSE OF THE NO COAGULATION RESULT ON ONE OF THE MACHINE HE DID CALL TECH SUPPORT TO INQUIRE ABOUT THE MACHINE
--- NOTE | 2019-03-23 02:45 | NUR ---
CHECK FOR BLEEDING PUPILS 1MM SLUGGISH,COUGH AND GAG NOTED NG ASPIRATED- NO BLOOD,GREENISH ASPIRATE ETT SUCTIONED - NO BLOOD URINE - CLEAR YELLOWISH INSERTION SITE - NO BLEEDING NOTED
--- NOTE | 2019-03-23 02:49 | NUR ---
LAB STAFF CALLED HE SAID THE TECH SUPPORT CALLED BACK HE SAID THE IT IS >130SECS HE WILL POST THE RESULTS
--- NOTE | 2019-03-23 04:00 | NUR ---
BLOOD SPECIMEN SENT FOR BLOOD TESTS
--- NOTE | 2019-03-23 04:00 | NUR ---
Patient bathe/linen change Patient given complete bath. Skin integrity assessed for any changes. Linens changed. Patient repositioned for comfort.
[2019-03-23] MEDS: ACCU-CHEK COMFORT CURVE STRIP VI SCH ×5 (04:03→21:15)
[2019-03-23] MEDS: InsuLIN REG 1unit/0.01ml Soln (100units/ml) SC SCH ×5 (04:06→21:19)
[2019-03-23 04:27] LABS: Basophils # (auto) 0 uL; Basophils % (auto) 0.2 % (0.0-2.0); Eosinophils # (auto) 0.1 uL; Eosinophils % (auto) 0.7 % (0.0-7.0); Hemoglobin 10.4 g/dL (13.5-17.5); Lymphocytes # (auto) 1.7 uL; Mean Corpuscular Hemoglobin 28.3 pg (28.0-32.0); Mean Corpuscular Hgb Conc. 33.5 g/dL (32.0-36.0); Mean Corpuscular Volume 84.5 fL (80.0-100.0); Monocytes # (auto) 1.1 uL; Monocytes % (auto) 8.7 % (0.0-12.0); Neutrophils # (auto) 9.5 uL; Neutrophils % (auto) 76.4 % (37.0-80.0); Nucleated Red Blood Cells % 0.2 %; Platelet Count (auto) 143 10^3/uL (140-450); Red Blood Cells 3.67 10^6/uL (4.5-5.90); Red Cell Distribution Width 12.6 % (11.8-14.3); White Blood Cell 12.4 10^3/uL (4.4-10.8)
[2019-03-23 04:45] LABS: Albumin 3.2 g/dL (3.4-5.0); BUN/Creatinine Ratio 8.1; Calcium 7.2 mg/dL (8.5-10.1); Potassium 4.1 mmol/L (3.5-5.1)
[2019-03-23 04:48] LABS: Bilirubin, Total 0.7 mg/dL (0.2-1.0); Total Protein 7.3 g/dL (6.4-8.2)
[2019-03-23] MEDS: PHENYLEPHRINE INJ 20 MG in SODIUM CHL 0.9% 250 ML IV SCH ×2 (05:32→22:00)
[2019-03-23] MEDS: PIPERACILLIN-TAZOB 2.25GM 50 ML IV SCH (05:38)
[2019-03-23] MEDS: PROPOFOL 100 ML IV SCH ×2 (05:38→17:58)
--- NOTE | 2019-03-23 06:05 | NUR ---
FOLLOW UP ON PT/PTT RESULTS CALLED UP LAB TO FOLLOW UP ON PT/PTT RESULTS SHE SAID SHE NEEDS TO INVESTIGATE MORE INFORMED THAT HEPARIN WAS TURNED OFF AT 0242HOURS AND THAT NEW SPECIMEN WAS COLLECTED AT 0400HRS
--- NOTE | 2019-03-23 06:25 | NUR ---
LAB STAFF CALLED RE:PT/PTT TALKED TO LAB STAFF CHARLINE, SHE SAID ITS STILL NO READING AND SHE SEES SOME MINUTE FIBRIN CLOTS. NEEDS TO SEND A NEW SAMPLE. SHE SAID THE MACHINE IS WORKING GOOD BECAUSE OTHER SPECIMEN FROM OTHER PATIENTS GIT RESULTS AND QC WAS DONE. IF STILL NOT READING AFTER THE NEW SPECIMEN, SHE WILL INFORM HER STATISTICS TEACHER THIS MORNING
[2019-03-23 07:35] LABS: INR 1.13 (0.9-1.15)
[2019-03-23 07:40] LABS: Partial Thromboplastin Time 127.3 sec (23.64-32.05)
--- NOTE | 2019-03-23 07:40 | NUR ---
PTT RESULTS 127.3SECS - INFORMED PATT MAR
[2019-03-23] MEDS ORDERED: PHENYLEPHRINE IV 250 ML IV ONE ×2 (07:44→08:28)
[2019-03-23] MEDS: fentaNYL Drip 2500mCg/250mlNS 250 ML IV SCH ×2 (07:54→21:15)
--- NOTE | 2019-03-23 08:05 | NUR ---
FAMILY AT BEDSIDE. UPDATED ON PATIENT STATUS. ALL QUESTIONS AND CONCERNS ADDRESSED AT THIS TIME
--- NOTE | 2019-03-23 08:38 | NUR ---
DR. DAVIS AT BEDSIDE
--- NOTE | 2019-03-23 08:45 | NUR ---
HEPARIN DRIP PER PHARMACIST NING DECREASE HEPARIN DRIP TO 2000 UNITS/HR AND REPEAT PTT AT 1500
--- NOTE | 2019-03-23 09:30 | NUR ---
SEDATION VACATION HELD AT THIS TIME Addendum: 03/23/19 at 0931 by Mehdi Dash RN Amended: Links added.
--- NOTE | 2019-03-23 09:35 | NUR ---
DR. CHRISTY AT BEDSIDE
[2019-03-23] MEDS: FAMOTIDINE (10MG/ML) 2ML VL IV SCH (09:42)
[2019-03-23] MEDS: LINEZOLID 600MG/300ML 300 ML IV SCH ×2 (11:07→23:04)
--- NOTE | 2019-03-23 11:57 | NUR ---
1150 03/23/19 I called [facility] [phone] and spoke with corporate development analyst Karen requesting continued inpatient authorization. She said that the assigned pillowcase maker today is Bren. Karen verified that they did received clinical information today on this patient but that it was for 03/22. I faxed requested clinical updates (MD progress notes, labs, vitals, medication list and xray for 03/23) to [phone]. I let Karen know that this patient is not stable for transfer today-she said pillowcase maker Bren will review the clinical information and give me a call back regarding today's authorization.
--- NOTE | 2019-03-23 12:18 | NUR ---
Nutrition Consult and Follow-up Notes Wt.: 113.0 kg today. Pt's intubated, no immediate family member at bedside except for RN during rounds this morning. Pt's sedated with Propofol @ 13.164 ml/hr providing 348 kcal from Fat, currently NPO, no order for alternate nutrition support yet at this time, per nursing. Noted pt's for active Wound and Pulmonary consults. Est. Needs: 1950 kcal to 2500 kcal (18-23 kcal/kgBW), 67 gms to 84 gms pro (0.8-1.0 gms/kgIBW: 84 kg). Will continue to monitor pertinent labs and reassess nutrient need prn Labs: Gluc 85 H, BUN 387 H, Cr 4.72 L, Ca 7.2 L, AST 74 H, ALT 71 H, Alb 3.2 L; HbA1c 11.8 H, Phos 2.4 L, Trop I 0.102 H Skin: Sukumar scale 11, high risk, pt's right thigh, groin skin tear per seamless tube mill operator. Pls refer to latest shift engineer's notes for further details re: tx plans. GI: Pt's no bowel activity since admission, on OGT to [facility], had 75 ml gastric drainage output this morning per seamless tube mill operator. PES: Increased nutrient needs r/t acute/chronic medical condition aeb intubated, sedated, NPO. Altered nutrition related lab values r/t current/chronic medical condition aeb hyperglycemia, hyponatremia, hyperkalemia, elev. Trop I, HbA1c, LFTs, low PHos, hypocalcemia Obesity r/t food intake more than body requirement aeb 135% IBW, BMI 32.9 kg/m2 and increased body adiposity Will continue to monitor NPO status, skin status, pertinent labs and weight trend. F/u in 2 to 3 days. Rec.: 1.) If still NPO, consider alternate nutrition support/EN support with preferred formula choice of Glucerna 1.2 Joseph @ 60 ml/hr goal rate as tolerated while on current rate of Propofol if medically appropriate. 2.) Advance gradually to oral diet when medically appropriate. 3.) Refer to CDE/RD for further nutrition educ. and weight monitoring upon discharge. 4.) Continue current plan of care. Thank you for this consult.
[2019-03-23] MEDS: HEPARIN DRIP/D5W 100UNITS/ML 250 ML IV SCH (13:09)
[2019-03-23] MEDS: BUMETANIDE INJECTION 25 MG in GIVE UN-DILUTED 0 ML IV SCH (13:53)
[2019-03-23] MEDS ORDERED: MEROPENEM 500MG IVPB 50 ML IV SCH (14:00)
--- NOTE | 2019-03-23 14:45 | NUR ---
POLI SENT TO LAB
[2019-03-23 15:34] LABS: INR 1.12 (0.9-1.15)
--- NOTE | 2019-03-23 15:34 | NUR ---
HEPARIN HELD AT THIS TIME PER PHARMACIST NING RESTART AT 1700 AND REPEAT PTT
[2019-03-23 15:36] LABS: Partial Thromboplastin Time > 139.0 sec (23.64-32.05)
[2019-03-23] MEDS ORDERED: SODIUM CHLORIDE 0.9% 500 ML IV ONE (15:45)
--- NOTE | 2019-03-23 19:21 | NUR ---
REPORT GIVEN TO MIRELLA BELTRE TO ASSUME CARE
--- NOTE | 2019-03-23 19:30 | NUR ---
ASSUMED CARE OF PATIENT FULL ASSESSMENT DONE-REFER INTERVENTIONS
--- NOTE | 2019-03-23 20:30 | NUR ---
[employer] MACHINE PATIENT HAS BEEN 72HOURS POST REWARMING TEMP 99F OR 37.4C CONFIRMED WITH DR. DAVIS - HE ORDERS PATIENT CAN BE TAKEN OFF THE MACHINE DISCONNECTED PATIENT FROM [employer] MACHINE
--- NOTE | 2019-03-23 22:00 | NUR ---
SEDATION SRIRAM CHOWDHURY WANTS TO TRY PRECEDEX FOR SEDATION WILL WEAN CURRENT SEDATION AND SLOWLY SWITCH TO PRECEDEX
[2019-03-23 23:53] LABS: INR 1.11 (0.9-1.15)
[2019-03-23 23:55] LABS: Partial Thromboplastin Time 109.3 sec (23.64-32.05)
[2019-03-24] VITALS (106 sets, daily range): BP systolic 78–162; BP diastolic 46–94
[2019-03-24] MEDS: VASOPRESSIN 50 UNITS in D5W 5% 247.5 ML IV SCH ×2
--- NOTE | 2019-03-24 00:07 | NUR ---
PTT/HEPARIN PTT 109.3SECS WILL STOP IV HEPARIN DRIP FOR 1 HOUR PER PROTOCOL THEN DECREASE DOSE BY 300 UNITS
[2019-03-24] MEDS: ACCU-CHEK COMFORT CURVE STRIP VI SCH ×6 (00:09→20:00)
[2019-03-24] MEDS: InsuLIN REG 1unit/0.01ml Soln (100units/ml) SC SCH ×6 (00:12→20:00)
--- NOTE | 2019-03-24 00:15 | NUR ---
TEMP 100.2F COOLING MEASURES DONE
--- NOTE | 2019-03-24 01:06 | NUR ---
HEPARIN DRIP RESUMED RATE DECREASED TO 1400UNITS/HR REPEAT PTT AT 0700HRS
[2019-03-24] MEDS: ALBUTEROL SULF 2.5 MG/0.5ML(0.5%) NEB SOLN NEB SCH ×6 (02:17→22:10)
[2019-03-24] MEDS: IPRATROPIUM BROM 0.5 MG/2.5ML INH SOL NEB SCH ×6 (02:17→22:09)
--- NOTE | 2019-03-24 02:30 | NUR ---
SPO2 ROUTINELY DROPPING TO 77%. REVERTED RR TO 24 BRIEFLY MAINTAINED PRIOR TO APRV. SPO2 IMPROVED TO 87%. PT REQUIRING INTERMITTENT BAG VENTILATION DUE TO POOR SATURATION. PATT APPLE IS AWARE. Addendum: 03/24/19 at 0434 by DOMINGO RIOS RT CHARTED UNDER WRONG PATIENT
--- NOTE | 2019-03-24 02:35 | NUR ---
DISREGARD PREVIOUS NOTE. CHARTED UNDER WRONG PT.
[2019-03-24] MEDS: HEPARIN DRIP/D5W 100UNITS/ML 250 ML IV SCH ×2 (02:39→07:56)
[2019-03-24] MEDS: NOREPINEPHRINE 8 MG/250ML KIT 250 ML IV SCH ×2 (02:48→23:44)
[2019-03-24] MEDS: DexMEDEtomidine 400 MCG in D5W 5% 96 ML IV SCH ×3 (03:34→23:43)
--- NOTE | 2019-03-24 04:00 | NUR ---
SPONGE BATH DONE LINENS CHANGED LEFT UPPER LATERAL BACK SKIN TEAR - DRESSING CHANGED
--- NOTE | 2019-03-24 04:10 | NUR ---
SEDATION PATIENT IS AWAKE ,EYES OPEN BUT NOT FOLLOWING COMMANDS STARTING TO GET RESTLESS, MOVING HANDS UP STARTED IV PRECEDEX - SEE IV SPREADSHEET FOR TITRATION
[2019-03-24 04:11] LABS: Albumin 2.9 g/dL (3.4-5.0); Calcium 7.7 mg/dL (8.5-10.1); Potassium 4.1 mmol/L (3.5-5.1)
[2019-03-24 04:14] LABS: BUN/Creatinine Ratio 8.8
[2019-03-24 04:16] LABS: Bilirubin, Total 0.5 mg/dL (0.2-1.0)
[2019-03-24 04:25] LABS: Hematocrit 33.7 % (41.0-53.0); Hemoglobin 11.2 g/dL (13.5-17.5); Mean Corpuscular Hemoglobin 28.2 pg (28.0-32.0); Mean Corpuscular Hgb Conc. 33.2 g/dL (32.0-36.0); Platelet Count (auto) 181 10^3/uL (140-450); Red Blood Cells 3.96 10^6/uL (4.5-5.90); Red Cell Distribution Width 12.4 % (11.8-14.3); White Blood Cell 9.9 10^3/uL (4.4-10.8)
[2019-03-24 04:29] LABS: Basophils % (manual) 0 (0.0-2.0); Blast Cells 0; Metamyelocytes % 0; Myelocytes % 0; Promyelocytes % 0; Reactive Lymphocytes 0
[2019-03-24 05:41] LABS: Band Neutrophils % (manual) 12; Eosinophils % (manual) 2 (0-7); Lymphocytes % (manual) 23 (10.0-50.0); Monocytes % (manual) 10 (0-12)
--- NOTE | 2019-03-24 07:00 | NUR ---
REPORT GIVEN TO PATT DARDEN
--- NOTE | 2019-03-24 07:10 | NUR ---
OPENING NOTE SHIFT REPORT RECEIVED AND ASSUMED CARE OF PT FROM MIRELLA BELTRE
[2019-03-24 07:36] LABS: INR 1.09 (0.9-1.15)
[2019-03-24 07:38] LABS: Partial Thromboplastin Time 79.1 sec (23.64-32.05)
--- NOTE | 2019-03-24 08:00 | NUR ---
DR. CHRISTY AT BEDSIDE ORDERS RECEIVED
--- NOTE | 2019-03-24 08:15 | NUR ---
JUNIOR AUTOMATION ENGINEER AT BEDSIDE
[2019-03-24] MEDS: cefTRIAXone 1GM/50ML D5W 50 ML IV SCH (09:19)
[2019-03-24] MEDS: FAMOTIDINE (10MG/ML) 2ML VL IV SCH (10:46)
[2019-03-24] MEDS: fentaNYL Drip 2500mCg/250mlNS 250 ML IV SCH (10:48)
--- NOTE | 2019-03-24 12:33 | NUR ---
03/24/19 1225 Contacted Force Dispatcher Tatiana at [facility] and requested authorization to be provided for patient's continued stay. She is requesting MD progress notes for today 03/24 to be faxed to her-faxed as requested to [phone]-she stated that she needs to review the clinical information from today with her physician and will then make a decision on authorization. I made her aware that patient's attending physician Dr. Bre Gutierrez deemed the patient not stable for transfer to [facility] today-I let her know that he can be reached through our hospital speed operator at [phone].
[2019-03-24 13:57] LABS: INR 1.07 (0.9-1.15); Partial Thromboplastin Time 55.7 sec (23.64-32.05)
--- NOTE | 2019-03-24 16:13 | NUR ---
1545 03/24/19 I called [facility] [phone] and spoke with senior analyst Bryan requesting continued inpatient authorization (as I have not received a call back from correctional case records supervisor Tatiana). Per Bryan the clinical information is still being reviewed-I requested that Bryan have Injection Molding Technician Tatiana call me when authorization decision is reached.
--- NOTE | 2019-03-24 16:14 | NUR ---
Respiratory note: PT OPENS EYES WITH VERBAL STIMULATION BUT STILL LETHARGIC, NOW FEBRILE WITH COOLING MEASURES IN PLACE. PT NOT READY FOR CPAP TRIAL AT THIS TIME. WILL ATTEMPT CPAP TRIAL WHEN PT IS MORE AWAKE/ALERT. WILL ENDORSE PT CARE TO NOC SHIFT RT.
--- NOTE | 2019-03-24 17:54 | NUR ---
HOSPITALIST CALLED FOR TEMP. ORDERS RECEIVED
[2019-03-24] MEDS ORDERED: ACETAMINOPHEN 650 mg PER 20 mL UD GT ONE (18:00)
[2019-03-24] MEDS: PHENYLEPHRINE INJ 20 MG in SODIUM CHL 0.9% 250 ML IV SCH (18:40)
--- NOTE | 2019-03-24 19:10 | NUR ---
OPEN ASSUMED CARE OF MALE PT ORALLY INTUBATED NO SS OF DISTRESS, VS ARE STABLE. PT HAS A R GROIN CENTRAL LINE, R FA 20G, R WRIST ART LINE, ALL LINES ARE PATENT AND ASYMPTOMATIC, DRESSINGS ARE CLEAN AND DRY. LINE PT IS ON FENTANYL 130MCG/HR, PRESIDEX 0.3MCG/KG/HR, HEPARIN 12ML/HR, LEVO 2.5MCG/MIN. PT PUPILS ARE 2 AND BRISK REACTIVE. PT SPONTANEOUSLY OPENS EYES. GRIMACES WITH TURN AND POSITIVE GAG AND COUGH WITH SUCTION. PT HAS WHAT APPEARS TO BE A SKIN TEAR NEAR THE R GROIN LINE COVERED WITH TEGADERM, PT HAS WHAT APPEARS TO BE A SKIN TEAR TO L BACK SIDE COVERED WITH OPTIFOAM. PT HAS A BLISTER TO THE R KNEE. L PEDAL PULSE IS STRONG,PALPABLE NO EDEMA, CAP REFILL <3. R PEDAL PULSE IS WEAK NON PITTING EDEMA PRESENT, CAP REFILL >3. PT PILLOWS IN PLACE PT HAS FOLY HANGING BELOW BLADDER DRAINING CLOUDY URINE WITH SEDIMENT. PT HAS PILLOWS IN PLACE UNDER [place] PROMINENCES TO OFFLOAD PRESSURE FOR SAFETY AND COMFORT. BED IS IN LOWEST LOCKED POSITION, HOB 45*, PT IS IN FULL VIEW OF RN STATION WILL CONTINUE TO CARE FOR AND MONITOR. Addendum: 03/24/19 at 2327 by AIRAM TALLEY RN RN PT HAS RECTAL THERMOMETER.
--- NOTE | 2019-03-24 19:10 | NUR ---
CLOSING NOTE SHIFT REPORT GIVEN AND CARE ENDORSED TO AIRAM BELTRE
--- NOTE | 2019-03-24 19:45 | NUR ---
FAMILY AT BEDSIDE
[2019-03-24 19:48] LABS: INR 1.06 (0.9-1.15); Partial Thromboplastin Time 56.9 sec (23.64-32.05)
--- NOTE | 2019-03-24 21:05 | NUR ---
FAMILY LEAVING "WILL BE BACK TOMORROW" PER PT
--- NOTE | 2019-03-24 23:19 | NUR ---
OPTIFOAM APPLIED OPTIFOAM APPLIED TO SACRUM FOR PREVENTATIVE MEASURES.
[2019-03-25] VITALS (85 sets, daily range): BP systolic 73–235; BP diastolic 43–107
[2019-03-25] MEDS: VASOPRESSIN 50 UNITS in D5W 5% 247.5 ML IV SCH ×2
[2019-03-25] MEDS: ACCU-CHEK COMFORT CURVE STRIP VI SCH ×6 (00:25→20:00)
[2019-03-25] MEDS: HEPARIN DRIP/D5W 100UNITS/ML 250 ML IV SCH ×3 (00:25→22:11)
[2019-03-25] MEDS: InsuLIN REG 1unit/0.01ml Soln (100units/ml) SC SCH ×6 (00:29→20:00)
--- NOTE | 2019-03-25 00:50 | NUR ---
INSULIN INSULIN GIVEN DUE TO BS LEVEL ACCORDING TO PRESCRIBED PROTOCOL
--- NOTE | 2019-03-25 01:15 | NUR ---
BLISTER OPEN PT BLISTER OPEN, PHOTOS TAKEN AND OPTIFOAM APPLIED.
[2019-03-25 01:57] LABS: Hematocrit 30.7 % (41.0-53.0); Mean Corpuscular Hemoglobin 27.7 pg (28.0-32.0); Mean Corpuscular Hgb Conc. 32.6 g/dL (32.0-36.0); Mean Corpuscular Volume 84.9 fL (80.0-100.0); Platelet Count (auto) 187 10^3/uL (140-450); Red Blood Cells 3.61 10^6/uL (4.5-5.90); Red Cell Distribution Width 12.5 % (11.8-14.3); White Blood Cell 7.3 10^3/uL (4.4-10.8)
[2019-03-25 01:59] LABS: Basophils % (manual) 0 (0.0-2.0); Blast Cells 0; Eosinophils % (manual) 0 (0-7); Metamyelocytes % 0; Myelocytes % 0; Promyelocytes % 0; Reactive Lymphocytes 0
[2019-03-25 02:02] LABS: INR 1.06 (0.9-1.15); Partial Thromboplastin Time 57.8 sec (23.64-32.05)
[2019-03-25 02:05] LABS: Potassium 3.8 mmol/L (3.5-5.1)
[2019-03-25 02:08] LABS: Albumin 2.4 g/dL (3.4-5.0); BUN/Creatinine Ratio 12.1
[2019-03-25] MEDS: IPRATROPIUM BROM 0.5 MG/2.5ML INH SOL NEB SCH ×6 (02:08→22:03)
[2019-03-25] MEDS: ALBUTEROL SULF 2.5 MG/0.5ML(0.5%) NEB SOLN NEB SCH ×6 (02:08→22:03)
[2019-03-25 02:10] LABS: Bilirubin, Total 0.4 mg/dL (0.2-1.0); Total Protein 7.3 g/dL (6.4-8.2)
[2019-03-25 02:28] LABS: Band Neutrophils % (manual) 14
[2019-03-25 02:29] LABS: Lymphocytes % (manual) 20 (10.0-50.0); Monocytes % (manual) 18 (0-12)
[2019-03-25] MEDS: PHENYLEPHRINE INJ 20 MG in SODIUM CHL 0.9% 250 ML IV SCH ×3 (03:00→19:40)
--- NOTE | 2019-03-25 03:30 | NUR ---
HYGIENE PARTIAL BED BATH AND SHANELLE CHANGE PROVIDED. PT TOLERATED CARE AND TURNS.
--- NOTE | 2019-03-25 04:20 | NUR ---
INSULIN INSULIN GIVEN DUE TO BS LEVEL ACCORDING TO PRESCRIBED PROTOCOL
[2019-03-25] MEDS: fentaNYL Drip 2500mCg/250mlNS 250 ML IV SCH (04:38)
--- NOTE | 2019-03-25 05:15 | NUR ---
SUCTION CANISTERS AND TUBING CHANGED
--- NOTE | 2019-03-25 05:50 | NUR ---
PT STARTING TO FOLLOW COMMANDS
--- NOTE | 2019-03-25 07:00 | NUR ---
Opening Shift Note: Report received from PATT Raza. Patient is intubated -responding to commands. Possibly CPAP-no order. See Interventions for more specific patient assessment.
--- NOTE | 2019-03-25 07:54 | NUR ---
Dr. Gutierrez at beside: ABG requested -CPAP. Patient not stable for transfer to [facility] -if extubated today, transfer to [facility] tomorrow.
--- NOTE | 2019-03-25 09:22 | NUR ---
Patient A/O and following commands - placed on CPAP trial.
--- NOTE | 2019-03-25 09:22 | NUR ---
Respiratory note: PT PLACED ON CPAP PER DR. CHRISTY AND APPEARS TO BE TOLERATING IT WELL. NO SOB NOTED. PT IS NOTED TO BE OFF SEDATION AND ABLE TO FOLLOW COMMAND. VENT SETTINGS ARE PS OF 8. PEEP 5 AND 30% FIO2. MED NEB TX RAN INLINE, NO ADVERSE REACTIONS NOTED. ABG TO BE DRWN IN ONE HOUR.
--- NOTE | 2019-03-25 09:32 | NUR ---
0951 03/25/19 Contacted business process analystoswald Simmons at [facility] and requested authorization for continued stay. Per Troy clinical information was received today on this member-but the keycase assembler has not been assigned yet. I let business process analystoswald Simmons know that per Dr. Bre Gutierrez patient not stable for transfer to [facility] today. Troy said that today's clinical information needs to be reviewed first by the keycase assembler before further authorization can be given. I provided business process analyst Troy with my contact information and requested that she have assigned keycase assembler call me.
--- NOTE | 2019-03-25 10:00 | NUR ---
A-LINE AND CVP line zeroed.
[2019-03-25] MEDS: cefTRIAXone 1GM/50ML D5W 50 ML IV SCH (10:03)
[2019-03-25] MEDS: FAMOTIDINE (10MG/ML) 2ML VL IV SCH (10:05)
[2019-03-25] MEDS: DexMEDEtomidine 400 MCG in D5W 5% 96 ML IV SCH (10:07)
--- NOTE | 2019-03-25 10:30 | NUR ---
Dr. Parr called -and Settings for CPAP orders changed.
--- NOTE | 2019-03-25 10:31 | NUR ---
Respiratory note: DR. THAKUR REQUESTED PT'S PS TO BE DECREASED TO 7 AND TO WAIT AN ADDITIONAL HOUR TO DO WEANING PARAMETERS AND ABG. PATT BELL IS AT BEDSIDE AND AWARE.
--- NOTE | 2019-03-25 11:23 | NUR ---
Dr. Johns at bedside- responding to MD commands.
--- NOTE | 2019-03-25 11:44 | NUR ---
Nutrition Follow-up Notes Wt.: 109.3 kg Pt's intubated, no immediate family member at bedside except for RN during rounds this morning. Pt`s off sedation when rounded this am on CPAP trial per RN. pt is currently NPO with no new diet orders Est. Needs: 1950 kcal to 2500 kcal (18-23 kcal/kgBW), 67 gms to 84 gms pro (0.8-1.0 gms/kgIBW: 84 kg). Will continue to monitor pertinent labs and reassess nutrient need prn Labs: BUN 53 H, CREAT 4.39 H, ALB 2.4 L, GLU 180 H, CA 8.0 L. Skin: Sukumar scale 12, high risk, pt's right thigh, groin skin tear per special education teachers. Pls refer to latest vineyard supervisor's notes for further details re: tx plans. GI: Pt's no bowel activity since admission, per special education teachers. PES: Increased nutrient needs r/t acute/chronic medical condition aeb intubated, sedated, NPO. Altered nutrition related lab values r/t current/chronic medical condition aeb hyperglycemia, hyponatremia, hyperkalemia, elev. Trop I, HbA1c, LFTs, low PHos, hypocalcemia Obesity r/t food intake more than body requirement aeb 135% IBW, BMI 32.9 kg/m2 and increased body adiposity Will continue to monitor NPO status, skin status, pertinent labs and weight trend. F/u in 2 to 3 days. Rec.: 1.) If still NPO, consider alternate nutrition support/EN support with preferred formula choice of Glucerna 1.2 Joseph @ 60 ml/hr goal rate as tolerated while on current rate of Propofol if medically appropriate. 2.) Advance gradually to oral diet when medically appropriate. 3.) Refer to CDE/RD for further nutrition educ. and weight monitoring upon discharge. 4.) Continue current plan of care.
--- NOTE | 2019-03-25 12:12 | NUR ---
Spoke with Dr. Parr and ABG results given: Extubate, incentive spirometer, and swallow request.
--- NOTE | 2019-03-25 12:31 | NUR ---
Respiratory note: PT EXTUBATED PER DR. THAKUR AND HAS BEEN PLACED ON CA WITH 30% FIO2. NO STRIDOR NOTED. PT TOLERATED THE EXTUBATION WELL. B/S ARE COARSE THROUGHOUT. NO SOB NOTED. POX 93%. RN RAY IS AWARE.
--- NOTE | 2019-03-25 12:31 | NUR ---
Patient extubated per Dr. Parr: on cool aerosol mask 30%. Sarai SOTO at bedside. Patient sats in the upper 90's. Addendum: 03/25/19 at 1438 by Silvia Green RN Lasix 40mg x1 ordered and given, BIPAP / Ordered.
[2019-03-25] MEDS ORDERED: FUROSEMIDE 40 MG/4 ML VIAL ONE (12:38)
--- NOTE | 2019-03-25 12:42 | NUR ---
Updated patients son on patients current status- Patient extubated and is responding and doing fine at this time, we will monitor closely. Son and patients will be here this afternoon.
[2019-03-25] MEDS ORDERED: FUROSEMIDE 40 MG/4 ML VIAL IV ONE (12:45)
--- NOTE | 2019-03-25 13:07 | NUR ---
1300 03/25/19 I received a call from [employer] Miner Bren [phone]-I requested continued inpatient authorization-she requested that I fax today's MD progess notes to [phone]-faxed as requested. I made her aware that patient just extubated [address] Bre Gutierrez had already stated earlier today that patient not stable for transfer. She will review today's progress notes with her MD-I requested that she call me back regarding authorization decision for today-per Bren she will call me back by 1600 today regarding the authorization decision.
--- NOTE | 2019-03-25 14:24 | NUR ---
Dr. Ornelas at bedside - patient assessed. No new orders.
[2019-03-25] MEDS: PROPOFOL 100 ML IV SCH (16:14)
--- NOTE | 2019-03-25 16:40 | NUR ---
SWALLOW EVALUATED WITH FAMILY PRESENT. PATIENT HAS OWN TEETH. ABLE TO FOLLOW DIRECTIONS. ORAL MOTOR WNL. PATIENT ABLE TO TOLERATE PUREE DIET TEXTURE WITH THIN LIQUIDS WITH NO OVERT SIGNS OR SYMPTOMS OF ASPIRATION. NURSING NOTIFIED.
--- NOTE | 2019-03-25 19:00 | NUR ---
RT NOTE PT WAS SEEN BY RT FOR HHN TX. PT TOLERATES WELL VIA MASK. NO ADVERSE REACTION NOTED. CONT ORDERED Addendum: 03/25/19 at 2151 by Carly Hernandez RT Amended: Links added.
--- NOTE | 2019-03-25 19:27 | NUR ---
REPORT GIVEN TO PATT CESAR.
--- NOTE | 2019-03-25 21:58 | NUR ---
RT NOTE PT WAS SEEN BY RT FOR HHN TX. PT TOLERATES WELL VIA MASK. NO ADVERSE REACTION NOTED. CONT ORDERED Addendum: 03/25/19 at 2252 by Carly Hernandez RT Amended: Links added.
[2019-03-26] VITALS (52 sets, daily range): BP systolic 111–164; BP diastolic 54–105
[2019-03-26] MEDS: VASOPRESSIN 50 UNITS in D5W 5% 247.5 ML IV SCH ×2
[2019-03-26 01:28] LABS: INR 1.11 (0.9-1.15); Partial Thromboplastin Time 48.7 sec (23.64-32.05)
[2019-03-26] MEDS: ALBUTEROL SULF 2.5 MG/0.5ML(0.5%) NEB SOLN NEB SCH ×6 (02:18→22:09)
[2019-03-26] MEDS: IPRATROPIUM BROM 0.5 MG/2.5ML INH SOL NEB SCH ×6 (02:18→22:09)
--- NOTE | 2019-03-26 02:18 | NUR ---
RT NOTE MEDICATION WAS HELD AT THIS TIME. PT IS SLEEPING AND SHOWS NO S/S OF SOB OR DISTRESS. PATT CESAR REQUESTS TO LET PT SLEEP AND CONTINUE HHN TX AT NEXT SCHEDULED TIME. Addendum: 03/26/19 at 0242 by Carly Hernandez RT Amended: Links added.
[2019-03-26] MEDS: ACETAMINOPHEN 325 MG TAB PO PRN (02:25)
[2019-03-26] MEDS: PHENYLEPHRINE INJ 20 MG in SODIUM CHL 0.9% 250 ML IV SCH (04:00)
[2019-03-26] MEDS: InsuLIN REG 1unit/0.01ml Soln (100units/ml) SC SCH ×6 (04:00→20:00)
[2019-03-26] MEDS: ACCU-CHEK COMFORT CURVE STRIP VI SCH ×6 (04:00→20:00)
[2019-03-26 04:30] LABS: Mean Corpuscular Volume 83.9 fL (80.0-100.0)
[2019-03-26 04:33] LABS: Hematocrit 29.4 % (41.0-53.0); Mean Corpuscular Hemoglobin 28.4 pg (28.0-32.0); Mean Corpuscular Hgb Conc. 33.9 g/dL (32.0-36.0); Red Blood Cells 3.51 10^6/uL (4.5-5.90); Red Cell Distribution Width 12.1 % (11.8-14.3); White Blood Cell 20.6 10^3/uL (4.4-10.8)
[2019-03-26 04:37] LABS: Basophils % (manual) 0 (0.0-2.0); Blast Cells 0; Metamyelocytes % 0; Myelocytes % 0; Promyelocytes % 0; Reactive Lymphocytes 0
[2019-03-26 04:52] LABS: Calcium 8.6 mg/dL (8.5-10.1); Potassium 3.9 mmol/L (3.5-5.1)
[2019-03-26 04:55] LABS: Albumin 2.4 g/dL (3.4-5.0); BUN/Creatinine Ratio 13.9
[2019-03-26 04:58] LABS: Bilirubin, Total 0.6 mg/dL (0.2-1.0); Total Protein 7.5 g/dL (6.4-8.2)
[2019-03-26 04:59] LABS: INR 1.08 (0.9-1.15); Partial Thromboplastin Time 53.7 sec (23.64-32.05)
[2019-03-26 05:54] LABS: Band Neutrophils % (manual) 1; Eosinophils % (manual) 1 (0-7); Lymphocytes % (manual) 29 (10.0-50.0); Monocytes % (manual) 16 (0-12)
[2019-03-26 05:57] LABS: Platelet Count (auto) 114 10^3/uL (140-450)
--- NOTE | 2019-03-26 07:15 | NUR ---
Opening shift note: Report received from PATT Haynes. Patient did good during the night no issues. See interventions for more details.
--- NOTE | 2019-03-26 07:52 | NUR ---
Dr. Gutierrez at bedside: Blood cultures ordered for increasing WBC'S, d/c YUMIKO and CVP. No purdy transfer until more stable, and keep in ICU. May start coumadin per pharmacy.
--- NOTE | 2019-03-26 09:00 | NUR ---
YUMIKO AND THOMAS DISCONTINUED-PER MD ORDER.
[2019-03-26] MEDS: HEPARIN DRIP/D5W 100UNITS/ML 250 ML IV SCH ×2 (09:04→18:22)
[2019-03-26] MEDS: FAMOTIDINE (10MG/ML) 2ML VL IV SCH (09:49)
[2019-03-26] MEDS: cefTRIAXone 1GM/50ML D5W 50 ML IV SCH (09:49)
[2019-03-26] MEDS ORDERED: ASPI81CH43 GT (10:23)
[2019-03-26] MEDS ORDERED: ATOR20TA50 PO (10:23)
[2019-03-26] MEDS ORDERED: AML5T GT (10:23)
[2019-03-26] MEDS ORDERED: LISI40TA PO (10:23)
[2019-03-26] MEDS ORDERED: METF-371 PO (10:23)
--- NOTE | 2019-03-26 11:00 | NUR ---
Dr. Cummins at bedside: 1/2 NS with bicarb at 80ml/hr. Urine sent to lab per MD order.
[2019-03-26] MEDS ORDERED: SODIUM BICARBONATE 8.4% INJ 50ML SYRINGE ONE (11:09)
[2019-03-26] MEDS: SODIUM BICARBONATE 50ML VIAL 50 ML in SOD CHL 0.45% 1,000 ML IV SCH (12:13)
--- NOTE | 2019-03-26 16:25 | NUR ---
Updated and family on patients status, will keep in ICU per MD. Continued to remind patient and family the importance of the IS to prevent lung collapse.
[2019-03-26] MEDS ORDERED: WARFARIN SODIUM 2.5 MG TAB PO ONE (17:00)
--- NOTE | 2019-03-26 18:00 | NUR ---
IS performed 1,000 tolerated.
--- NOTE | 2019-03-26 18:55 | NUR ---
Blood cultures positive -gram negative rods, hospitalist nelly. Addendum: 03/26/19 at 1902 by Silvia Green RN No new changes - continue with rocephin. Addendum: 03/27/19 at 0814 by Silvia Green RN Called [facility] to verify correct patient results and they said results negative for him.
--- NOTE | 2019-03-26 19:40 | NUR ---
Report given to PATT Haynes.
[2019-03-27] VITALS (17 sets, daily range): BP systolic 132–151; BP diastolic 78–99
[2019-03-27] MEDS: ACCU-CHEK COMFORT CURVE STRIP VI SCH ×7 (00:03→23:50)
[2019-03-27] MEDS: InsuLIN REG 1unit/0.01ml Soln (100units/ml) SC SCH ×7 (00:03→23:50)
[2019-03-27] MEDS: SODIUM BICARBONATE 50ML VIAL 50 ML in SOD CHL 0.45% 1,000 ML IV SCH ×2 (00:08→10:08)
[2019-03-27] MEDS: ALBUTEROL SULF 2.5 MG/0.5ML(0.5%) NEB SOLN NEB SCH ×6 (02:09→22:28)
[2019-03-27] MEDS: IPRATROPIUM BROM 0.5 MG/2.5ML INH SOL NEB SCH ×6 (02:09→22:28)
[2019-03-27 04:41] LABS: Hematocrit 31.2 % (41.0-53.0); Hemoglobin 10.3 g/dL (13.5-17.5); INR 1.1 (0.9-1.15); Mean Corpuscular Hgb Conc. 32.9 g/dL (32.0-36.0); Mean Corpuscular Volume 85.1 fL (80.0-100.0); Partial Thromboplastin Time 60.1 sec (23.64-32.05); Platelet Count (auto) 290 10^3/uL (140-450); Red Blood Cells 3.67 10^6/uL (4.5-5.90); Red Cell Distribution Width 12.6 % (11.8-14.3); White Blood Cell 10.7 10^3/uL (4.4-10.8)
[2019-03-27 04:45] LABS: Basophils % (manual) 0 (0.0-2.0); Blast Cells 0; Myelocytes % 0; Promyelocytes % 0; Reactive Lymphocytes 0
[2019-03-27 04:49] LABS: Albumin 2.5 g/dL (3.4-5.0); Calcium 9.2 mg/dL (8.5-10.1); Potassium 3.5 mmol/L (3.5-5.1)
[2019-03-27 04:52] LABS: BUN/Creatinine Ratio 17.1; Bilirubin, Total 0.4 mg/dL (0.2-1.0); Phosphorus 4.2 mg/dL (2.5-4.90); Total Protein 7.7 g/dL (6.4-8.2)
[2019-03-27 06:32] LABS: Band Neutrophils % (manual) 11; Eosinophils % (manual) 1 (0-7); Lymphocytes % (manual) 9 (10.0-50.0); Metamyelocytes % 1; Monocytes % (manual) 6 (0-12)
[2019-03-27] MEDS: HEPARIN DRIP/D5W 100UNITS/ML 250 ML IV SCH ×3 (06:50→11:45)
--- NOTE | 2019-03-27 07:00 | NUR ---
Opening shift note: Report received from PATT Haynes. Patient did good during the night no issues. See interventions for more details.
--- NOTE | 2019-03-27 08:06 | NUR ---
DR. CHRISTY AT BEDSIDE: SPOKE WITH PATIENT; TRANSFER TO [facility] WILL BE PLACED TODAY. DOWNGRADE TO [facility], AND NEW RECOMMENDATIONS MADE TO PATIENT WHEN TRANSFERRING TO [facility]. DR. CHRISTY RECOMMEND FOR FURTHER EVALUATION FOR IVC FILTER, LEFT HEART CATH, AND MEDICATION CHANGES FOR DIABETES (JAANUMET WITH LANTUS).
--- NOTE | 2019-03-27 09:00 | NUR ---
LOCKETT CATHETER REMOVED, TOLERATED WELL.
--- NOTE | 2019-03-27 09:15 | NUR ---
BOWEL MOVEMENT: LARGE LOOSE BROWN STOOL, CHARU-CARE GIVEN.
--- NOTE | 2019-03-27 09:52 | NUR ---
DR. NORTH AT BEDSIDE: START LANTUS 10 HS, AND GIVE POTASSIUM. OK TO GIVE TYLENOL SUPPOSITORY FOR TEMP. Addendum: 03/27/19 at 1346 by Silvia Green RN WRONG PATIENT, DISREGARD.
--- NOTE | 2019-03-27 09:52 | NUR ---
DR. NORTH AT BEDSIDE: DR. NORTH AT BEDSIDE: START LANTUS 10 HS, AND GIVE POTASSIUM.
[2019-03-27] MEDS ORDERED: POTASSIUM CHL 20 Meq TABLET PO ONE (10:00)
[2019-03-27] MEDS: cefTRIAXone 1GM/50ML D5W 50 ML IV SCH (10:07)
[2019-03-27] MEDS: FAMOTIDINE (10MG/ML) 2ML VL IV SCH (10:07)
[2019-03-27 10:50] LABS: INR 1.15 (0.9-1.15); Partial Thromboplastin Time 48.4 sec (23.64-32.05)
--- NOTE | 2019-03-27 11:23 | NUR ---
Nutrition Follow-up Notes Wt.: 106.5 kg Pt's successfully extubated 03/25, sleeping with no family by bedside. per pt records pt with septic shock now improving and awaiting tx to other facility. pt is currently on CCHO 60 gm cardiac diet with inadequate PO of < 50% x 3 as pt refusing to eat per RN. Est. Needs: 1950 kcal to 2500 kcal (18-23 kcal/kgBW), 67 gms to 84 gms pro (0.8-1.0 gms/kgIBW: 84 kg). Will continue to monitor pertinent labs and reassess nutrient need prn Labs: BUN 55 H, CREAT 3.22 H, ALB 2.5 L, GLU 217 H Skin: Sukumar scale 14, mod risk, pt's right thigh, groin skin tear per clinical documentation spec. Pls refer to latest meat processor's notes for further details re: tx plans. GI: Pt had 1 BM yesterday per clinical documentation spec. PES: Partially resolved: Increased nutrient needs r/t acute/chronic medical condition aeb intubated, sedated, NPO. Altered nutrition related lab values r/t current/chronic medical condition aeb hyperglycemia, hyponatremia, hyperkalemia, elev. Trop I, HbA1c, LFTs, low PHos, hypocalcemia Obesity r/t food intake more than body requirement aeb 135% IBW, BMI 32.9 kg/m2 and increased body adiposity Will continue to monitor PO intake, skin status, pertinent labs and weight trend. F/u in 3-5 days. Rec.: 1.) Consider Glucerna shake 1 carton bid if PO remains low. 2) continue assistance with meals. 3) Refer to CDE/RD for further nutrition educ. and weight monitoring upon discharge. 4.) Continue current plan of care.
--- NOTE | 2019-03-27 12:00 | NUR ---
200CC URINE VOID, LARGE LOOSE BROWN STOOL. CHARU-CARE GIVEN.
[2019-03-27] MEDS ORDERED: SODIUM BICARBONATE 8.4% INJ 50ML SYRINGE ONE (13:36)
--- NOTE | 2019-03-27 15:53 | NUR ---
SBAR REPORT GIVEN TO PATT MARTE IN TELE.
--- NOTE | 2019-03-27 15:54 | NUR ---
IS AT BEDSIDE- PERFORMED BREATHING EXERCISES UP TO 1,000.
--- NOTE | 2019-03-27 16:44 | NUR ---
TRANSPORTED PATIENT TO ROOM 283 TELE: FAMILY AND AT BEDSIDE AND AWARE. PATIENT ON TELE BOX 50 AND ON OXYGEN. NO DISTRESS.
[2019-03-27] MEDS ORDERED: WARFARIN SODIUM 2.5 MG TAB PO ONE (17:00)
--- NOTE | 2019-03-27 20:30 | NUR ---
Opening Shift Note Assumed care of patient, awake and alert. No S/S of distress/SOB or pain. Currently on heparin drip at 16ml/hr, 1/2 NS with bicarb at 80 ml/hr, infusing in the right femoral central line, latest blood sugar is 158, will start lantus tonight. Instructed on POC and to call for assist PRN, will continue to monitor for changes Q1hr and PRN.
[2019-03-27] MEDS ORDERED: metFORMIN HYDROCHLORIDE 500 MG TAB PO SCH (22:00)
[2019-03-27] MEDS ORDERED: INSULIN LANTUS (GLARGINE) 1 /0.01ml (100units/ml) SC SCH (22:00)
--- NOTE | 2019-03-27 22:37 | NUR ---
Respiratory note: PT STATES THAT HE REFUSES TO WEAR CPAP
--- NOTE | 2019-03-28 00:24 | NUR ---
LATEST APTT IS 64.7, NO CHANGES ON HEPARIN DRIP PER PROTOCOL.
--- NOTE | 2019-03-28 01:39 | NUR ---
FOUND PATIENT TRYING TO GET OUT OF BED, WANTING TO HAVE A BOWEL MOVEMENT, O2 CANNULA WAS OFF, APPEARED TACHYPNEIC, RR-30s,HR - 140s, O2SAT WAS ON TH 70s WITH 3L O2 VIA CANNULA, RIGHT FEMORAL LINE WITH BLOODY DRESSING, NOTICED SMALL AMOUNT OF BLOOD OOZING OUT OF THE DRESSING. INCREASED O2 TO 5L, SAT PATIENT UP ON THE BED, ENCOURAGED SLOW DEEP BREATHING AND O2SAT WENT UP TO 89-90, PLACED ON NRB MASK AT 15L O2 AND O2SAT WENT UP TO 95-98%, HR IS DOWN TO 110s, PARTIAL BED BATH GIVEN TO PATIENT, SITUATED ON THE BED, PT VERBALIZED FEELING BETTER. NOTIFIED RT THAT PATIENT WAS PLACED ON NRB MASK. WILL WEAN PATIENT BACK TO NC WHEN ABLE. RIGHT FEMORAL LINE DRESSING CHANGED USING ASEPTIC TECHNIQUE. BED ALARM KEPT ON. WHEN ATTEMPTED TO WEAN PATIENT BACK TO NASAL CANNULA, ON 4L, PATIENT DESATURATED TO 86% RIGHT AWAY, ENCOURAGED TO TAKE SLOW DEEP BREATHS BUT PATIENT KEEPS BREATHING THROUGH HIS MOUTH. PLACED BACK ON NRB MASK, O2SAT WENT UP TO 97%. NOTIFIED RT AND SUGGESTED TO TRY SIMPLE MASK SINCE PATIENT IS MOUTH BREATHING. RT WILL CHECK PATIENT AND GIVE SCHEDULED NEBULIZER TREATMENT FOR 0200. WILL KEEP MONITORING
[2019-03-28] MEDS: SODIUM BICARBONATE 50ML VIAL 50 ML in SOD CHL 0.45% 1,000 ML IV SCH ×2 (02:01→17:03)
[2019-03-28] MEDS: ALBUTEROL SULF 2.5 MG/0.5ML(0.5%) NEB SOLN NEB SCH ×5 (02:05→18:06)
[2019-03-28] MEDS: IPRATROPIUM BROM 0.5 MG/2.5ML INH SOL NEB SCH ×5 (02:05→18:06)
--- NOTE | 2019-03-28 02:06 | NUR ---
Respiratory note: TERMINATED MED NEB TX AT THIS TIME, PLACED PT BACK ON NRB 15L. PT PULSE OX DESAT TO 67% WHILE IN MED NEB AND PT WOB INCREASED, RR 48, BILATERAL BS CRACKLES. SPOKE TO RN ABOUT CHEST XRAY AT THIS TIME.
--- NOTE | 2019-03-28 02:15 | NUR ---
PAGED HOSPITALIST, PATIENT IS STILL TACHYPNEIC, DESATURATES QUICKLY, RT AT BEDSIDE. WAITING FOR CALL BACK.
--- NOTE | 2019-03-28 02:16 | NUR ---
Respiratory note: PT SAT 99% ON 15NRB. PT WOB WENT BACK TO BASELINE BEFORE MED NEB TX.
--- NOTE | 2019-03-28 02:24 | NUR ---
REPAGED HOSPITALIST, RT IS DOING ABG AND PUT BIPAP ON PATIENT, O2SAT IS 98% ON 60% FIO2, RR-30, BP-148/98, HR-110. PATIENT DENIES ANY PAIN. WAITING FOR CALL BACK.
--- NOTE | 2019-03-28 02:45 | NUR ---
Respiratory note: SPOKE TO RN ABOUT CHEST XRAY AT THIS TIME
--- NOTE | 2019-03-28 02:55 | NUR ---
SPOKE TO JUDITH LOCK SUP AND NOTIFIED OF PATIENT'S RESPIRATORY STATUS CHANGE, CURRENTLY REQUIRING BIPAP, ABG DONE BY RT, COARSE BREATH SOUND, ASKED WHARF WORKER IF CHEST XRAY CAN BE ORDERED STAT SINCE HOSPITALIST HAS NOT CALLED BACK YET. PER ASHVIN, OK TO ORDER CXR AND WILL HAVE HOSPITALIST CALL ME BACK.
--- NOTE | 2019-03-28 03:15 | NUR ---
Respiratory note: TRANSPORT PT TO 278A AT THIS TIME, PLACED PT BACK ON ORIGINAL ORDERED SETTINGS, WILL CONTINUE TO MONITOR
[2019-03-28] MEDS: HEPARIN DRIP/D5W 100UNITS/ML 250 ML IV SCH ×3 (03:34→20:09)
[2019-03-28] MEDS: ACCU-CHEK COMFORT CURVE STRIP VI SCH ×5 (04:19→20:09)
[2019-03-28] MEDS: InsuLIN REG 1unit/0.01ml Soln (100units/ml) SC SCH ×5 (04:23→20:15)
[2019-03-28 05:23] VITALS: BP 134/89
[2019-03-28 06:04] LABS: Basophils # (auto) 0 uL; Basophils % (auto) 0.1 % (0.0-2.0); Eosinophils # (auto) 0.1 uL; Eosinophils % (auto) 0.8 % (0.0-7.0); Hemoglobin 10.8 g/dL (13.5-17.5); Lymphocytes # (auto) 1.5 uL; Lymphocytes % (auto) 10.6 % (10.0-50.0); Mean Corpuscular Hemoglobin 27.8 pg (28.0-32.0); Mean Corpuscular Hgb Conc. 32.6 g/dL (32.0-36.0); Mean Corpuscular Volume 85.2 fL (80.0-100.0); Monocytes # (auto) 1.6 uL; Monocytes % (auto) 11.5 % (0.0-12.0); Neutrophils # (auto) 10.6 uL; Nucleated Red Blood Cells % 0.1 %; Platelet Count (auto) 289 10^3/uL (140-450); Red Blood Cells 3.88 10^6/uL (4.5-5.90); Red Cell Distribution Width 12.2 % (11.8-14.3); White Blood Cell 13.8 10^3/uL (4.4-10.8)
[2019-03-28 06:24] LABS: INR 1.37 (0.9-1.15); Partial Thromboplastin Time 65.3 sec (23.64-32.05)
--- NOTE | 2019-03-28 06:49 | NUR ---
LATEST APTT IS 65.3, NO CHANGE ON HEPARIN DRIP PER PROTOCOL.
--- NOTE | 2019-03-28 08:24 | NUR ---
RT Patient requesting to be taken off of bipap so that he can eat. RT paged.
[2019-03-28] MEDS: cefTRIAXone 1GM/50ML D5W 50 ML IV SCH (08:51)
[2019-03-28] MEDS: FAMOTIDINE (10MG/ML) 2ML VL IV SCH (08:52)
[2019-03-28 09:00] VITALS: BP 139/89
--- NOTE | 2019-03-28 09:20 | NUR ---
SOB Patient c/o SOB and is requesting to be placed back on bipap, currently on 6L O2 and O2 saturation level is 94%. RT paged.
[2019-03-28] MEDS ORDERED: ASPirin 81 mg TAB GT SCH (10:00)
[2019-03-28] MEDS ORDERED: ATORVASTATIN 20 MG TAB PO SCH (10:00)
[2019-03-28] MEDS ORDERED: amLODIPine BESYLATE 5 MG TAB GT SCH (10:00)
--- NOTE | 2019-03-28 11:15 | NUR ---
SS Spoke with Cony ESCOBAR, regarding discharge/transfer to [facility]. States will contact [facility].
--- NOTE | 2019-03-28 11:15 | NUR ---
TRANSFER: discussed with primary RN today to see why pt was not transferred yesterday since there is d/c summary and SS consult to transfer pt. Reply was that there was not d/c order. Even if no d/c order, MD needs to be asked to put in d/c order since it was his intent to transfer this pt yesterday. As it is , [facility] may deny stay for this time since auth for stay was only for 10- 20 19
--- NOTE | 2019-03-28 11:22 | NUR ---
transfer: transfer packet faxed to [facility]
[2019-03-28] MEDS ORDERED: FUROSEMIDE 40 MG/4 ML VIAL IV ONE (12:15)
[2019-03-28] MEDS ORDERED: LORazepam 2MG/ML-1ML VIAL IV PRN (12:15)
--- NOTE | 2019-03-28 12:18 | NUR ---
Respiratory note: PT TAKEN OFF BIPAP TO EAT. NO RESPIRATORY DISTRESS NOTED. SPO2 98% 3L NC HR 105 RR 20 B/S COARSE. RN AT BEDSIDE.
[2019-03-28 12:56] VITALS: BP 137/90
--- NOTE | 2019-03-28 13:18 | NUR ---
[place] Spoke with Alyssa Dobson [facility], answered all questions. States still working on obtaining bed, will call when bed becomes available.
--- NOTE | 2019-03-28 13:34 | NUR ---
VQ SCAN Spoke with Radiology, Ej, regarding ordered VQ scan. States he is reluctant to perform procedure secondary to patient being so reliant on oxygen. States that patient will need to be off of O2 anywhere from 5-10 minutes, will consider performing test this afternoon if patient has not been transferred to [place].
[2019-03-28 17:00] VITALS: BP 124/65
[2019-03-28] MEDS ORDERED: WARFARIN SODIUM 2.5 MG TAB PO ONE (17:00)
[2019-03-28] MEDS: ACETAMINOPHEN 325 MG TAB PO PRN (17:04)
--- NOTE | 2019-03-28 20:50 | NUR ---
Pt being trans to another hosp Order obtained for transfer of TIA JORGE to [facility]. Report called/given to PATT BERGMAN. Report given to EMS transport team. Medication reconciliation form completed and copy given to patient. Transported via [facility] along with copied chart and imaging films/disk and all personal belongings. No distress noted on time of departure. Family notified of destination and room number, verbalized understanding. NOTE: PATIENT WAS TRANSFERED WITH HEPARIN DRIP AT 16ML/HR,INFUSING ON RIGHT FEMORAL LINE. LATEST V/S: T-98.2, HR-100, ST, RR-20, L7MDL-19 ON 5 L O2, BP-129/84. DENIES ANY PAIN.
== END 2019-03-28 20:50 | disposition short-term general hospital (02) | DRG 870 ==
LOC: EDBD 11:55 → ER 11:55 → TELE 11:56 → ICU WEST 19:19 → TELE-WESTW 03-27 16:44
PROVIDERS: ADMIT Nurse Practitioner Acute Care; ATTEND Family Medicine
PROC: 5A1955Z Respiratory Ventilation, Greater than 96 Consecutive Hours (ICD-10-PCS; principal; 2019-03-19)
PROC: 0BH17EZ Insertion of Endotracheal Airway into Trachea, Via Natural or Artificial Opening (ICD-10-PCS; 2019-03-19)
PROC: 5A12012 Performance of Cardiac Output, Single, Manual (ICD-10-PCS; 2019-03-19)
PROC: 5A09357 Assistance with Respiratory Ventilation, Less than 24 Consecutive Hours, Continuous Positive Airway Pressure (ICD-10-PCS; 2019-03-28)
DX: A41.9 Sepsis, unspecified organism (principal); E11.01 Type 2 diabetes mellitus with hyperosmolarity with coma; R65.21 Severe sepsis with septic shock; G93.41 Metabolic encephalopathy; J96.00 Acute respiratory failure, unspecified whether with hypoxia or hypercapnia; I46.9 Cardiac arrest, cause unspecified; I21.4 Non-ST elevation (NSTEMI) myocardial infarction; N17.0 Acute kidney failure with tubular necrosis; E87.0 Hyperosmolality and hypernatremia; E87.4 Mixed disorder of acid-base balance; G93.1 Anoxic brain damage, not elsewhere classified; I82.401 Acute embolism and thrombosis of unspecified deep veins of right lower extremity; J98.11 Atelectasis; R00.1 Bradycardia, unspecified; E86.0 Dehydration; D64.9 Anemia, unspecified; E66.9 Obesity, unspecified; B95.61 Methicillin susceptible Staphylococcus aureus infection as the cause of diseases classified elsewhere; F17.200 Nicotine dependence, unspecified, uncomplicated; G40.401 Other generalized epilepsy and epileptic syndromes, not intractable, with status epilepticus; G47.10 Hypersomnia, unspecified; N18.9 Chronic kidney disease, unspecified; I12.9 Hypertensive chronic kidney disease with stage 1 through stage 4 chronic kidney disease, or unspecified chronic kidney disease; E11.22 Type 2 diabetes mellitus with diabetic chronic kidney disease; E87.6 Hypokalemia; Z79.4 Long term (current) use of insulin; Z83.3 Family history of diabetes mellitus; Z82.49 Family history of ischemic heart disease and other diseases of the circulatory system; Z79.899 Other long term (current) drug therapy; Z68.31 Body mass index [BMI] 31.0-31.9, adult
CPT/HCPCS: 31500; 36415; 36556; 36600; 70450; 71045; 72125; 72170; 76775; 80048; 80053; 80061; 80202; 80307; 81001; 82010; 82043; 82306; 82550; 82570; 82805; 82962; 83036; 83605; 83735; 83880; 83930; 83970; 84100; 84132; 84300; 84484; 85007; 85025; 85027; 85379; 85610; 85730; 86703; 86850; 86900; 86901; 87040; 87070; 87077; 87081; 87086; 87186; 87205; 87804; 92610; 93005; 93306; 93970; 94002; 94003; 94640; 94660; 94762; 95819; 96361; 96374; 99291; A4618; G0378; J0330; J0610; J0696; J1815; J2185; J2250; J2543; J2704; J3480; J3490; J7060; P9047